=== PATIENT | female | born 1950 | race Hispanic/Latino ===

== ENCOUNTER 2017-04-13 09:29 | Inpatient (IN) | payer MEDICARE, BC ==
[2017-04-13 09:32] VITALS: BMI 26.5
[2017-04-13] MEDS ORDERED: Midazolam 2 MG/2 ML VIAL ONE (09:33)
--- NOTE | 2017-04-13 09:33 | C.PDOC ---
History Of Present Illness 66 yr old female with PMHx of COPD and left mastectomy, brought in via EMS presents to the ER for AMS. According to EMS, family reports symptoms started this morning and upon arrival of EMS, patient was still awake but was becoming anxious. On route to ED patient became obtunded and had to be intubated and is on CPAP. Patient was intubated without difficulty. EMS states they are unsure of the dose for succinylcholine. ROS is unable to be obtained due to clinical condition. Patient also history of prior trach placement which was removed 1 month ago. Time Seen by Provider: 04/13/17 09:32 Chief Complaint (Nursing): Respiratory Distress History Per: EMS History/Exam Limitations: clinical condition Onset/Duration Of Symptoms: Sudden Onset (Morning) Current Symptoms Are (Timing): Still Present Initiating Event: Upper Respiratory Illness Past Medical History Reviewed: Historical Data, Nursing Documentation, Vital Signs Vital Signs: Last Vital Signs Temp 97.8 F 04/13/17 10:23 Pulse 75 04/13/17 12:28 Resp 20 04/13/17 12:28 BP 120/67 04/13/17 12:28 Pulse Ox 100 04/13/17 12:28 - Medical History PMH: Anemia, Anxiety, Arthritis, Asthma, Bronchitis, Cardia Arrhythmia, CHF, COPD, Fractures, Gall Bladder Disease, HTN, Hyperthyroidism (on methimazole), Hypothyroidism, Malignancy (breast CA), Osteoporosis, Pneumonia - [facility] Procedures BYPASS TRACHEA TO CUTANEOUS WITH TRACH DEV, OPEN APPROACH (10/04/16) CHANGE TRACHEOSTOMY DEVICE IN TRACHEA, EXTERNAL APPROACH (01/25/17) DRAINAGE OF BUCCAL MUCOSA, EXTERNAL APPROACH, DIAGNOSTIC (10/04/16) DRAINAGE OF BUCCAL MUCOSA, OPEN APPROACH, DIAGNOSTIC (10/04/16) DRAINAGE OF BUCCAL MUCOSA, PERCUTANEOUS APPROACH, DIAGNOSTIC (10/04/16) DRAINAGE OF RIGHT LOWER LOBE BRONCHUS, ENDO, DIAGN (10/04/16) DRAINAGE OF RIGHT MIDDLE LOBE BRONCHUS, ENDO, DIAGN (10/04/16) INJECT/INFUSE NEC (04/30/14) INSERTION OF ENDOTRACHEAL AIRWAY INTO TRACHEA, VIA OPENING (10/04/16) INSERTION OF FEEDING DEVICE INTO STOMACH, PERC APPROACH (10/04/16) INSERTION OF INFUSION DEV INTO SUP VENA CAVA, PERC APPROACH (10/04/16) INSPECTION OF TRACHEOBRONCHIAL TREE, ENDO (10/04/16) INTRODUCE OF OTH THERAP SUBST INTO RESP TRACT, VIA OPENING (09/06/15) MEASURE OF CARDIAC SAMPL & PRESSURE, L HEART, PERC APPROACH (10/26/15) NEBULIZER THERAPY (05/31/14) NON-INVASIVE MECHANICAL VENTILATION (12/25/13) OCCUPATIONAL THERAPY (05/31/14) PHYSICAL THERAPY NEC (05/31/14) PLAIN RADIOGRAPHY OF LEFT HEART USING OTHER CONTRAST (10/26/15) PLAIN RADIOGRAPHY OF SINGLE COR ART USING OTH CONTRAST (10/26/15) REMOVAL OF INFUSION DEVICE FROM UPPER VEIN, WILLOW MACHINE OPERATOR APPROACH (01/25/17) RESPIRATORY VENTILATION, 24-96 CONSECUTIVE HOURS (01/25/17) SOFT TISSUE INCISION NEC (04/07/13) THERAPEUTIC EXERCISE TREATMENT OF MUSCULOSK WHOLE (09/06/15) TRANSFUSE NONAUT RED BLOOD CELLS IN CENTRAL VEIN, PERC (10/04/16) Family History: States: No Known Family Hx - Social History Hx Alcohol Use: No Hx Substance Use: No Review Of Systems Review Of Systems: ROS cannot be obtained secondary to pt's inabilty to answer questions. Physical Exam - Physical Exam Appears: Non-toxic, Other ((+) Sedated. ) Skin: Warm, Dry, No Rash Head: Atraumatic, Normacephalic Chest: Other (Left mastectomy scar.) Cardiovascular: Rhythm Regular, No Murmur Respiratory: Normal Breath Sounds (On vents ), No Wheezing Pulses: Left Radial: Normal, Right Radial: Normal, Left Dorsalis Pedis: Normal, Right Dorsalis Pedis: Normal Neurological/Psych: Other (Patient is intubated. ) ED Course And Treatment - Laboratory Results Result Diagrams: 04/13/17 10:28 04/13/17 11:17 ECG: Interpreted By Me, Viewed By Nm ECG Rhythm: Sinus Rhythm ECG Interpretation: Abnormal Interpretation Of ECG: Nonspecific T wave abnormality Rate From EC (BPM) - Radiology CXR: Interpreted by Me CXR Interpretation: Yes: Other (ETT ABOVE LUKAS) Progress - Re-Evaluation Re-evaluation Note: 04/13/17 10:15 89/43, HR 75. STABLE ON VENT. WILL BOLUS. 04/13/17 10:30 FAMILY @ BEDSIDE. DENIES RECENT ILLNESS. RECUR COPD UPON PT AWAKENING THIS MORNING. COMPLIANT W MEDS. PT IS NOT O2 DEPENDENT. PENDING LABS, ABG 04/13/17 11:41 D/W DR FORRESTER ACCEPTS FOR ICU. D/W DR ASHRAF MED BUNCH BREAKER WILL ADMIT - Data Reviewed Data Reviewed: Lab, Diagnostic imaging, EKG, Old records - Critical Care Citical Care: Excluding Proc Time Critical Care Time: 120 minutes - Continuity of Care Discussed patient case with:: On-call PMD-pt unassigned Discussed pt. case with library sales consultant/specialty: Pulmonary/Crit. Care Medical Decision Making Medical Decision Making: PLAN: * CXR * EKG * ABG * Troponin * CBC * CMP * BNP * Urinalysis * Solumedrol IVP * Sodium Chloride IV NOTE: * Patient was given Versed and Ketamine in field MANAGER OF DRILLING. 0927: Patient arrived to ER intubated. Disposition Counseled Patient/Family Regarding: Studies Performed, Diagnosis - Disposition Disposition: HOSPITALIZED Disposition Time: 11:46 Condition: STABLE - POA Present On Arrival: None - Clinical Impression Clinical Impression: COPD with exacerbation, Respiratory failure - Scribe Statement The provider has reviewed the documentation as recorded by the Barbaraiblaney Jimenez Provider Attestation: All medical record entries made by the Scribe were at my direction and personally dictated by me. I have reviewed the chart and agree that the record accurately reflects my personal performance of the history, physical exam, medical decision making, and the department course for this patient. I have also personally directed, reviewed, and agree with the discharge instructions and disposition. Decision To Admit - Pt Status Changed To: Hospital Disposition Of: Inpatient - Admit Certification Admit to Inpatient:: After my assessment, the patient will require hospitalization for at least two midnights. This is because of the severity of symptoms shown, intensity of services needed, and/or the medical risk in this patient being treated as an outpatient. - InPatient: Physician Admission Certification: I certify that this patient requires 2 or more midnights of care for the following reason:: SEE NOTE - . Bed Request Type: ICU Admitting Physician: Dillon Ashraf Patient Diagnosis: COPD with exacerbation, Respiratory failure
[2017-04-13] MEDS ORDERED: Midazolam 50 mg/10 ml 100 MG in Sodium Chloride 0.9% 80 ML IV SCH (09:45)
[2017-04-13] MEDS ORDERED: MethylPREDNISolone 40 mg Vial ONE (09:55)
[2017-04-13] MEDS ORDERED: Sodium Chloride 0.9% 500 ML IV ONE (10:16)
[2017-04-13 10:34] LABS: BASO % 0.3 % (0.0-2.0); EOS # 0.1 K/uL (0.0-0.7); EOS % 0.4 % (0.0-4.0); HEMATOCRIT 40.8 % (34.0-47.0); LYMPH # 2.2 K/uL (1.0-4.3); LYMPH % 15.7 % (20.0-40.0); MEAN CELL VOLUME 90.7 fL (81.0-99.0); MEAN CORPUSCULAR HEMOGLOBIN 28.4 pg (27.0-31.0); MEAN CORPUSCULAR HGB CONC 31.3 g/dL (33.0-37.0); MEAN PLATELET VOLUME 7.4 fL (7.2-11.7); MONO # 0.6 K/uL (0.0-0.8); MONO % 4.4 % (0.0-10.0); NRBC % 0.2 % (0.0-2.0); RED CELL DISTRIBUTION WIDTH 18.1 % (11.5-14.5); WHITE BLOOD COUNT 13.8 K/uL (4.8-10.8)
[2017-04-13 11:00] LABS: ABG ALLEN TEST POS; ABG MECHANICAL RATE 16; ARTERIAL BLOOD GAS MODE PRVC; ATERIAL BLOOD GAS PEEP 5; DRAW SITE LRA
[2017-04-13] MEDS ORDERED: Midazolam 2 MG/2 ML VIAL IV STA (11:26)
--- NOTE | 2017-04-13 11:34 | RAD ---
HISTORY: tube placement COMPARISON: No prior. FINDINGS: LUNGS: Endotracheal to extending into the trachea, somewhat low lying approximately 1.2 centimeters from the alexander. Additional tubing projects over the left lower reji thorax and right lung apex. Confluent dense consolidative changes in the right infrahilar region extending to the medial right lower lung zone. Additional confluent consolidative changes at the left lung base. Question trace bilateral pleural effusions. Diffuse increased interstitial markings. Biapical pleural thickening with upper lobe granulomatous changes. PLEURA: As above. CARDIOVASCULAR: Calcification at the aortic knob. OSSEOUS STRUCTURES: Degenerative changes in the spine and shoulders. Foreshortening of the distal bilateral clavicles. Postsurgical changes in the left proximal humerus. Postsurgical changes in the spine. VISUALIZED UPPER ABDOMEN: Normal. OTHER FINDINGS: Surgical clips in the right axilla. IMPRESSION: Endotracheal to extending into the trachea, somewhat low lying approximately 1.2 centimeters from the alexander. Additional tubing projects over the left lower reji thorax and right lung apex. Confluent dense consolidative changes in the right infrahilar region extending to the medial right lower lung zone. Additional confluent consolidative changes at the left lung base. Question trace bilateral pleural effusions. Diffuse increased interstitial markings. Biapical pleural thickening with upper lobe granulomatous changes.
[2017-04-13 11:36] LABS: CHLORIDE 108 mmol/L (98-107); SODIUM 143 mmol/L (132-148)
[2017-04-13 11:38] LABS: BILIRUBIN,TOTAL 0.4 mg/dL (0.2-1.3); CARBON DIOXIDE 23 mmol/L (22-30); GFR AFRICAN-AMERICAN > 60
[2017-04-13 11:39] LABS: ALKALINE PHOSPHATASE 82 U/L (38-126); ALT/SGPT 53 U/L (9-52); AST/SGOT 68 U/L (14-36); BLOOD UREA NITROGEN 21 mg/dL (7-17); CALCIUM 7.4 mg/dl (8.6-10.4); GLUCOSE,RANDOM 181 mg/dL (65-105); TOTAL PROTEIN 5.5 g/dL (6.3-8.3)
[2017-04-13 11:45] LABS: POTASSIUM 4.4 mmol/L (3.6-5.2)
[2017-04-13 12:27] LABS: RBC URINE 2 /hpf (0-3); URINE BACTERIA RARE (<OCC); URINE BILIRUBIN NEGATIVE (NEGATIVE); URINE BLOOD 1+ (NEGATIVE); URINE COLOR Yellow (YELLOW); URINE GLUCOSE (UA) 2+ mg/dL (Normal); URINE HYALINE CAST 0-2 /lpf (0-2); URINE KETONE NEGATIVE (NEGATIVE); URINE LEUKOCYTE ESTERASE TRACE Leu/uL (Negative); URINE PROTEIN 1+ mg/dL (NEGATIVE); URINE UROBILINOGEN NORMAL mg/dL (0.2-1.0); WBC URINE 8 /hpf (0-5)
[2017-04-13] MEDS ORDERED: guaiFENesin 100 mg/5 ml Syrup UD PO PRN (13:42)
[2017-04-13] MEDS ORDERED: Sodium Chloride 0.9% 1,000 ML IV SCH (13:45)
[2017-04-13] MEDS: Albuterol-Ipratrop 3 mg / 0.5 (3 ml) UD INH SCH ×2 (13:53→19:24)
--- NOTE | 2017-04-13 13:54 | CP.PCM.CON ---
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 p/w recurrent acute exacerbation of COPD (AECOPD) with acute respiratory failure. Intubated in ED (04/13). Review of Systems - Review of Systems Systems not reviewed;Unavailable: Intubated Past Patient History - Infectious Disease Hx of Infectious Diseases: None - Tetanus Immunizations Tetanus Immunization: Unknown - Past Medical History & Family History Past Medical History?: Yes - Past Social History Smoking Status: Former Smoker - CARDIAC Hx Cardia Arrhythmia: Yes Hx Congestive Heart Failure: Yes Hx Hypertension: Yes - PULMONARY Hx Asthma: Yes Hx Bronchitis: Yes Hx Chronic Obstructive Pulmonary Disease (COPD): Yes Hx Pneumonia: Yes - NEUROLOGICAL Hx Neurological Disorder: Yes Other/Comment: Peripheral neuropathy right lower extremity. 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 - RENAL Hx Chronic Kidney Disease: No - ENDOCRINE/METABOLIC Hx Hyperthyroidism: Yes (on methimazole) Hx Hypothyroidism: Yes - HEMATOLOGICAL/ONCOLOGICAL Hx Anemia: Yes - INTEGUMENTARY Hx Dermatological Problems: No - MUSCULOSKELETAL/RHEUMATOLOGICAL Hx Arthritis: Yes Hx Fractures: Yes Hx Osteoporosis: Yes - GASTROINTESTINAL Hx Gall Bladder Disease: Yes - GENITOURINARY/GYNECOLOGICAL Hx Genitourinary Disorders: No - PSYCHIATRIC Hx Anxiety: Yes Hx Substance Use: No - SURGICAL HISTORY Hx Surgeries: Yes Hx Mastectomy: Yes (right in 1998; left in 2008) Hx Orthopedic Surgery: Yes (2003 rigtht shoulder prosthesis, removal of hardware 2013) Hx Tubal Ligation: Yes Other/Comment: shoulder and humerous replacement with joint space infection and eventual removal of hardware in right shoulder and chronic lymphedema of RUE, groin cyst removal, cervical spinal fusion 2007, lumbar spinal fusion 2007. - ANESTHESIA Hx Anesthesia: Yes Hx Anesthesia Reactions: No Hx Malignant Hyperthermia: No Meds Allergies/Adverse Reactions: Allergies Allergy/AdvReac Type Severity Reaction Status Date / Time paper tape Allergy RASH Uncoded 03/11/17 18:30 - Medications Medications: Current Medications Albuterol/Ipratropium (Duoneb 3 Mg/0.5 Mg (3 Ml) Ud) 3 ml INH RQ6 NORMA Guaifenesin (Robitussin) 100 mg PO Q4H PRN PRN Reason: Cough Midazolam HCl 100 mg/ Sodium (Chloride) 100 mls @ 1.36 mls/hr IV .Q24H NORMA; 0.02 MG/KG/HR PRN Reason: Protocol Last Admin: 04/13/17 11:15 Dose: 1.36 mls/hr Cefepime HCl 1 gm/ Dextrose 50 mls @ 100 mls/hr IVPB Q8H NORMA Azithromycin 500 mg/ Sodium (Chloride) 250 mls @ 250 mls/hr IVPB Q24H NORMA Sodium Chloride (Sodium Chloride 0.9%) 1,000 mls @ 75 mls/hr IV .[id number] [facility] Stop: 04/13/17 23:46 Methylprednisolone (Solu-Medrol) 40 mg IV Q12 NORMA Physical Exam - Head Exam Head Exam: ATRAUMATIC, NORMAL INSPECTION, NORMOCEPHALIC - Eye Exam Eye Exam: EOMI, Normal appearance, PERRL - ENT Exam ENT Exam: Mucous Membranes Moist, Normal Exam - Neck Exam Neck exam: Positive for: Normal Inspection - Respiratory Exam Respiratory Exam: Decreased Breath Sounds (at bases), Clear to Auscultation Bilateral, NORMAL BREATHING PATTERN - Cardiovascular Exam Cardiovascular Exam: REGULAR RHYTHM - GI/Abdominal Exam GI & Abdominal Exam: Normal Bowel Sounds, Soft. absent: Tenderness - Neurological Exam Neurological exam: Alert Results - Vital Signs Recent Vital Signs: Last Vital Signs Temp 97.8 F 04/13/17 10:23 Pulse 75 04/13/17 12:28 Resp 20 04/13/17 12:28 BP 120/67 04/13/17 12:28 Pulse Ox 100 04/13/17 12:28 - Labs Result Diagrams: 04/13/17 10:28 04/13/17 11:17 Labs: Laboratory Results - last 24 hr 04/13/17 12:15 Urine Color Yellow Urine Clarity Clear Urine pH 6.0 Ur Specific [place] 1.013 Urine Protein 1+ H Urine Glucose (UA) 2+ H Urine Ketones Negative Urine Blood 1+ H Urine Nitrate Negative Urine Bilirubin Negative Urine Urobilinogen Normal Ur Leukocyte Esterase Trace Urine WBC (Auto) 8 H Urine RBC (Auto) 2 Urine Bacteria Rare Hyaline Casts 0-2 Assessment & Plan (1) Respiratory failure Assessment and Plan: 66yo PMHx chroic respiratory failure requiring trach and PEG (11/25 - 03/06/17) , systolic and diastolic CHF, COPD, bilateral metastatic breast CA to shoulder s /p chemo/rad 8 years ago (s/p humerus resection) with chronic lymphedema RUE, HTN, hyperthyroidism, tachycardia/SVT, Right cephalic vein thrombosis, anxiety. p/w recurrent acute exacerbation of COPD (AECOPD) with acute respiratory failure. Intubated in ED (04/13). Neuro: Alert and following commands. Versed when necessary for severe agitation. Pulm: Acute respiratory failure secondary to acute exacerbation of COPD and concomitant healthcare associated pneumonia. IV steroids, DuoNeb nebs, IV antibiotics, mucolytic. CV: Hemodynamically stable. Hypertension, we'll restart meds once pressure starts to rise. Hem: Anemia of chronic disease Renal: No acute issues, urine output within normal limits, will monitor. Endo: Hyperparathyroidism GI: Nothing by mouth, tube feedings, Pulmocare. ID: Severe sepsis secondary to healthcare associated pneumonia, continue cefepime and azithromycin. DVT proph - Lovenox GI proph - Protonix [place] for strict I/O's during acute illness Code status - full code Critical Care Time spent 35 minutes Multi-disciplinary rounds were performed with house staff, nursing, speech therapy, respiratory therapy, pharmacy and nutrition with integrated input from the primary team/attending and other consulting services. The documented time is cumulative and includes review of patient data/exams/labs/chart review and examination of the patient on rounds and throughout the day; time is exclusive of any procedures or teaching time. Status: Acute
[2017-04-13] MEDS: Azithromycin 500 MG in Sodium Chloride 0.9% 250 ML IVPB SCH (14:21)
[2017-04-13] MEDS: Enoxaparin 40 mg Syringe SC SCH (14:29)
[2017-04-13] MEDS: methIMAzole 5 MG TAB PO SCH (14:31)
[2017-04-13] MEDS ORDERED: Midazolam 2 MG/2 ML VIAL IVP PRN (15:18)
[2017-04-13] MEDS: Potassium Chloride 20 mEq ER Tab PO SCH ×2 (18:22→18:23)
[2017-04-13] MEDS ORDERED: MethylPREDNISolone 1 gm Vial IV SCH (22:00)
--- NOTE | 2017-04-13 22:00 | CP.PCM.HP ---
History of Present Illness - History of Present Illness History of Present Illness: 66 Y/O HF WITH COPD, HTN AND SHE STARTED GETTING SHORT OF BREATH COUGH WHEEZING AND S=CHEST PAIN AND CHEST CONGESTION AND WHEEZING, HER FAMILY CALLED 911 AND SHE WAS STARTED ON NEBULIZER OXYGEN AND SHE GOT INTUBATED BY THE EMS AND NOW SHE IS IN MICU Present on Admission - Present on Admission Any Indicators Present on Admission: No History of DVT/PE: No History of Uncontrolled Diabetes: No Urinary Catheter: No Decubitus Ulcer Present: No Review of Systems - Review of Systems Systems not reviewed;Unavailable: Unstable Vital Signs - Constitutional Constitutional: Chills, Weakness - EENT Eyes: Pain Nose/Mouth/Throat: Nasal Congestion - Cardiovascular Cardiovascular: Dyspnea - Respiratory Respiratory: Cough, Dyspnea, Wheezing, Pain on Inspiration, Chest Congestion, Excessive Mucous Production, Change in Mucous Color - Gastrointestinal Gastrointestinal: Belching - Genitourinary Genitourinary: Other - Integumentary Integumentary: Dry Skin Past Patient History - Infectious Disease Hx of Infectious Diseases: None - Tetanus Immunizations Tetanus Immunization: Unknown - Past Medical History & Family History Past Medical History?: Yes - Past Social History Smoking Status: Former Smoker - CARDIAC Hx Cardia Arrhythmia: Yes Hx Congestive Heart Failure: Yes Hx Hypertension: Yes - PULMONARY Hx Asthma: Yes Hx Bronchitis: Yes Hx Chronic Obstructive Pulmonary Disease (COPD): Yes Hx Pneumonia: Yes - NEUROLOGICAL Hx Neurological Disorder: Yes Other/Comment: Peripheral neuropathy right lower extremity. 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 - RENAL Hx Chronic Kidney Disease: No - ENDOCRINE/METABOLIC Hx Hyperthyroidism: Yes (on methimazole) Hx Hypothyroidism: Yes - HEMATOLOGICAL/ONCOLOGICAL Hx Anemia: Yes - INTEGUMENTARY Hx Dermatological Problems: No - MUSCULOSKELETAL/RHEUMATOLOGICAL Hx Arthritis: Yes Hx Fractures: Yes Hx Osteoporosis: Yes - GASTROINTESTINAL Hx Gall Bladder Disease: Yes - GENITOURINARY/GYNECOLOGICAL Hx Genitourinary Disorders: No - PSYCHIATRIC Hx Anxiety: Yes Hx Substance Use: No - SURGICAL HISTORY Hx Surgeries: Yes Hx Mastectomy: Yes (right in 1998; left in 2008) Hx Orthopedic Surgery: Yes (2003 rigtht shoulder prosthesis, removal of hardware 2013) Hx Tubal Ligation: Yes Other/Comment: shoulder and humerous replacement with joint space infection and eventual removal of hardware in right shoulder and chronic lymphedema of RUE, groin cyst removal, cervical spinal fusion 2007, lumbar spinal fusion 2007. - ANESTHESIA Hx Anesthesia: Yes Hx Anesthesia Reactions: No Hx Malignant Hyperthermia: No Meds Allergies/Adverse Reactions: Allergies Allergy/AdvReac Type Severity Reaction Status Date / Time paper tape Allergy RASH Uncoded 03/11/17 18:30 Physical Exam - Constitutional Appears: In Acute Distress - Head Exam Head Exam: ATRAUMATIC, NORMAL INSPECTION, NORMOCEPHALIC (ORALLY INTUBATED) - Eye Exam Eye Exam: Normal appearance - ENT Exam ENT Exam: Mucous Membranes Moist, Normal Oropharynx - Respiratory Exam Respiratory Exam: Prolonged Expiratory Phase, Wheezes, Respiratory Distress - Cardiovascular Exam Cardiovascular Exam: Tachycardia, Clicks, REGULAR RHYTHM, +S1, +S2 - GI/Abdominal Exam GI & Abdominal Exam: Normal Bowel Sounds, Soft - Rectal Exam Rectal Exam: NORMAL INSPECTION - Exam Exam: NORMAL INSPECTION - Extremities Exam Extremities exam: Positive for: normal inspection - Neurological Exam Neurological exam: Abnormal Gait, Altered Results - Vital Signs Recent Vital Signs: Last Vital Signs Temp 97.4 F L 04/13/17 21:25 Pulse 85 04/13/17 21:00 Resp 20 04/13/17 21:00 BP 135/63 04/13/17 20:55 Pulse Ox 98 04/13/17 21:00 - Labs Result Diagrams: 04/13/17 10:28 04/13/17 11:17 Labs: Laboratory Results - last 24 hr 04/13/17 12:15 Urine Color Yellow Urine Clarity Clear Urine pH 6.0 Ur Specific [place] 1.013 Urine Protein 1+ H Urine Glucose (UA) 2+ H Urine Ketones Negative Urine Blood 1+ H Urine Nitrate Negative Urine Bilirubin Negative Urine Urobilinogen Normal Ur Leukocyte Esterase Trace Urine WBC (Auto) 8 H Urine RBC (Auto) 2 Urine Bacteria Rare Hyaline Casts 0-2 Assessment & Plan (1) Acute respiratory failure with hypercapnia Assessment and Plan: ON MV Status: Acute (2) Acute tracheobronchitis Status: Acute (3) Hypothyroidism Status: Chronic (4) HTN (hypertension) Status: Chronic Priority: Medium
[2017-04-13] MEDS: MethylPREDNISolone 40 mg Vial IV SCH (22:02)
[2017-04-14] MEDS: Albuterol-Ipratrop 3 mg / 0.5 (3 ml) UD INH SCH ×4 (01:09→19:03)
[2017-04-14] MEDS ORDERED: Sodium Chloride 0.9% 1,000 ML IV SCH (01:30)
[2017-04-14] MEDS: Pantoprazole 40 mg Susp UD PO SCH (05:13)
[2017-04-14 05:56] LABS: ABG ALLEN TEST POS; ABG MECHANICAL RATE 20; ARTERIAL BLOOD GAS MODE PRVC; ATERIAL BLOOD GAS PEEP 5; CARBOXYHEMOGLOBIN 1.9 % (0.5-1.5); DRAW SITE LR; METHEMOGLOBIN 1.1 % (0.0-3.0)
[2017-04-14 06:22] LABS: EOS % 0.1 % (0.0-4.0); HEMATOCRIT 35.5 % (34.0-47.0); LYMPH # 0.5 K/uL (1.0-4.3); LYMPH % 5.5 % (20.0-40.0); MEAN CELL VOLUME 88.4 fL (81.0-99.0); MEAN CORPUSCULAR HEMOGLOBIN 28.2 pg (27.0-31.0); MEAN CORPUSCULAR HGB CONC 31.9 g/dL (33.0-37.0); MEAN PLATELET VOLUME 7.5 fL (7.2-11.7); MONO # 0.2 K/uL (0.0-0.8); MONO % 2.6 % (0.0-10.0); NRBC % 0.2 % (0.0-2.0); PLATELET COUNT 351 K/uL (130-400); RED CELL DISTRIBUTION WIDTH 17.3 % (11.5-14.5); WHITE BLOOD COUNT 9.2 K/uL (4.8-10.8)
[2017-04-14 07:08] LABS: ALKALINE PHOSPHATASE 74 U/L (38-126); ALT/SGPT 41 U/L (9-52); AST/SGOT 26 U/L (14-36); BILIRUBIN,TOTAL 0.4 mg/dL (0.2-1.3); BLOOD UREA NITROGEN 25 mg/dL (7-17); CALCIUM 7.5 mg/dl (8.6-10.4); CARBON DIOXIDE 24 mmol/L (22-30); CHLORIDE 107 mmol/L (98-107); GFR AFRICAN-AMERICAN > 60; GLUCOSE,RANDOM 99 mg/dL (65-105); MAGNESIUM 1.7 mg/dL (1.6-2.3); PHOSPHOROUS 3.8 mg/dL (2.5-4.5); POTASSIUM 4.7 mmol/L (3.6-5.2); SODIUM 141 mmol/L (132-148); TOTAL PROTEIN 5.1 g/dL (6.3-8.3)
[2017-04-14 07:21] LABS: ALB/GLOB RATIO 1.1 (1.0-2.1)
[2017-04-14 08:26] LABS: NEUTROPHIL 93 % (50-75); REACTIVE LYMPHOCYTES 1 % (0-0); TOTAL CELLS COUNTED 100
--- NOTE | 2017-04-14 08:55 | RAD ---
Chest x-ray single frontal view History: Ventilator. Comparison: 04/13/2017 Findings: Endotracheal tube extending into the mid thoracic trachea. NG tube extending into the stomach. Hyperinflation suggestive for COPD and or emphysematous changes. Biapical pleural thickening with upper lobe granulomatous changes. Patchy increased markings in the right hilar and infrahilar region as well as at the bilateral lung bases. Scattered nodularity throughout the lung bases. Scoliotic curvature of the spine. Cardiomegaly. Calcification at the aortic knob. Deformity and absence of the proximal right humerus with a patchy sclerotic appearance of the distal clavicle, acromion, glenoid, coracoid, and remnant humerus. Surgical clips in the left axilla. Impression: No significant interval change.
[2017-04-14] MEDS: MethylPREDNISolone 40 mg Vial IV SCH ×2 (10:35→21:30)
[2017-04-14] MEDS: methIMAzole 5 MG TAB PO SCH (10:35)
[2017-04-14] MEDS: Enoxaparin 40 mg Syringe SC SCH (10:37)
--- NOTE | 2017-04-14 11:23 | CP.CCUPN ---
<Felisa Zuluaga - Last Filed: 04/14/17 12:51> CCU Subjective - Physician Review Subjective (Free Text): Patient was seen and examined at bedside in the morning and in no acute distress. Patient is intubed, therefore review of systems was limited. Patient was able to nod "yes" and "no" to questions. Patient denies having chest pain, abdominal pain, nausea, vomiting, diarrhea, headaches, and leg pain. 04/14/17 11:20 CCU Objective - Vital Signs / Intake & Output Vital Signs (Last 4 hours): Vital Signs Temp Pulse Resp BP Pulse Ox 04/14/17 11:10 103 H 14 98 04/14/17 11:00 105 H 9 L 98 04/14/17 10:55 104 H 11 L 163/85 H 98 04/14/17 10:50 105 H 12 98 04/14/17 10:40 102 H 13 98 04/14/17 10:36 163/84 H 04/14/17 10:30 105 H 20 98 04/14/17 10:20 101 H 20 100 04/14/17 10:10 101 H 20 99 04/14/17 10:00 100 H 20 99 04/14/17 09:55 102 H 20 163/84 H 99 04/14/17 09:50 101 H 20 99 04/14/17 09:40 103 H 20 99 04/14/17 09:30 103 H 20 99 04/14/17 09:23 104 H 20 160/78 H 97 04/14/17 09:20 108 H 20 99 04/14/17 09:10 101 H 20 97 04/14/17 09:00 101 H 20 96 04/14/17 08:56 101 H 20 164/90 H 97 04/14/17 08:50 101 H 20 97 04/14/17 08:40 101 H 20 96 04/14/17 08:30 100 H 20 99 04/14/17 08:10 99 H 20 100 04/14/17 08:00 98.2 F 98 H 20 99 04/14/17 07:56 98 H 20 170/88 H 99 04/14/17 07:50 102 H 22 100 04/14/17 07:40 98 H 20 98 04/14/17 07:30 102 H 20 100 Intake and Output (Last 8hrs): Intake & Output 08/06/17 08/07/17 08/07/17 22:59 06:59 14:59 Intake Total 931.2 903.2 465.6 Output Total 1295 425 300 Balance -363.8 478.2 165.6 Weight 113 lb 8.609 oz 110 lb 3.698 oz Intake: Intake, IV Amount 871.2 623.2 305.6 Left Forearm 610 612 300 Left Proximal Port Wrist 250 Left Wrist 11.2 11.2 5.6 Tube Feeding 60 160 100 Other 120 60 Output: Urine 1295 425 300 Urethral (Jean Baptiste) 1295 425 300 Other: # Bowel Movements 1 - Physical Exam Head: Positive for: Atraumatic, Normocephalic Extroacular Muscles: Positive for: EOMI Mouth: Positive for: Moist Mucous Membranes Respiratory/Chest: Positive for: Clear to Auscultation. Negative for: Wheezes, Rales, Rhonchi Cardiovascular: Positive for: Regular Rate and Rhythm, Normal S1, S2 Abdomen: Positive for: Normal Bowel Sounds. Negative for: Tenderness Upper Extremity: Positive for: Edema. Negative for: Normal Inspection (RUE- chronic lymphedema ("for years")) Lower Extremity: Positive for: Normal Inspection, NORMAL PULSES. Negative for: Edema, Tenderness, Swelling Skin: Positive for: Warm, Dry, Normal Color Psychiatric: Positive for: Alert - Medications Active Medications: Active Medications Generic Name Dose Route Start Last Admin Trade Name Freq PRN Reason Stop Dose Admin Albuterol/Ipratropium 3 ml 04/13/17 14:00 04/14/17 07:58 Duoneb 3 Mg/0.5 Mg (3 Ml) Ud INH 3 ml RQ6 NORMA Administration Enoxaparin Sodium 40 mg 04/13/17 14:15 04/14/17 10:37 Lovenox SC 40 mg DAILY NORMA Administration Gabapentin 600 mg 04/13/17 18:00 04/14/17 10:35 Neurontin PO 600 mg TID NORMA Administration Guaifenesin 100 mg 04/13/17 13:42 Robitussin PO Q4H PRN Cough Cefepime HCl 1 gm/ Dextrose 50 mls @ 100 mls/hr 04/13/17 14:00 04/14/17 05:13 IVPB 100 mls/hr Q8H NORMA Administration Azithromycin 500 mg/ Sodium 250 mls @ 250 mls/hr 04/13/17 15:00 04/13/17 14: 21 Chloride IVPB 250 mls/hr Q24H NORMA Administration Methimazole 5 mg 04/13/17 14:15 04/14/17 10:35 Tapazole PO 5 mg DAILY NORMA Administration Methylprednisolone 40 mg 04/13/17 22:00 04/14/17 10:35 Solu-Medrol IV 40 mg Q12 NORMA Administration Metoprolol Tartrate 25 mg 04/14/17 10:00 04/14/17 10:36 Lopressor PO 25 mg BID NORMA Administration Pantoprazole Sodium 40 mg 04/14/17 06:00 04/14/17 05:13 Protonix Susp PO 40 mg 0600 NORMA Administration - Patient Studies Lab Studies: Lab Studies 04/14/17 04/14/17 04/14/17 Range/Units 06:16 06:15 05:25 WBC 9.2 (4.8-10.8) K/uL RBC 4.02 (3.80-5.20) Mil/uL Hgb 11.3 (11.0-16.0) g/dL Hct 35.5 (34.0-47.0) % MCV 88.4 D (81.0-99.0) fL MCH 28.2 (27.0-31.0) pg MCHC 31.9 L (33.0-37.0) g/dL RDW 17.3 H (11.5-14.5) % Plt Count 351 D (130-400) K/uL MPV 7.5 (7.2-11.7) fL Neut % (Auto) 91.8 H (50.0-75.0) % Lymph % (Auto) 5.5 L (20.0-40.0) % [place] % (Auto) 2.6 (0.0-10.0) % Eos % (Auto) 0.1 (0.0-4.0) % Baso % (Auto) 0.0 (0.0-2.0) % Neut # 8.4 H (1.8-7.0) K/uL Lymph # 0.5 L (1.0-4.3) K/uL [place] # 0.2 (0.0-0.8) K/uL Eos # 0.0 (0.0-0.7) K/uL Baso # 0.0 (0.0-0.2) K/uL Neutrophils % (Manual) 93 H (50-75) % Lymphocytes % (Manual) 4 L (20-40) % Reactive Lymphs % 1 H (0-0) % Monocytes % (Manual) 2 (0-10) % Platelet Estimate Normal (NORMAL) Anisocytosis (manual) Slight Puncture Site Lr pCO2 35 (35-45) mm/Hg pO2 171 H (80-100) mm/Hg HCO3 23.8 (21-28) mmol/L ABG pH 7.42 (7.35-7.45) ABG Total CO2 23.8 (22-28) mmol/L ABG O2 Saturation 100.0 H (95-98) % ABG Base Excess -1.4 (-2.0-3.0) mmol/L ABG Hemoglobin 11.5 L (11.7-17.4) g/dL ABG Carboxyhemoglobin 1.9 H (0.5-1.5) % POC ABG HHb (Measured) 0.0 (0.0-5.0) % ABG Methemoglobin 1.1 (0.0-3.0) % Markel Test Pos A-a O2 Difference 142.0 mm/Hg Respiratory Index 0.8 Hgb O2 Saturation 97.0 (95.0-98.0) % Vent Mode Prvc Mechanical Rate 20 FiO2 50.0 % Tidal Volume 500 PEEP 5 Sodium 141 (132-148) mmol/L Potassium 4.7 (3.6-5.2) mmol/L Chloride 107 (98-107) mmol/L Carbon Dioxide 24 (22-30) mmol/L Anion Gap 15 (10-20) BUN 25 H (7-17) mg/dL Creatinine 0.8 (0.7-1.2) MG/DL Est GFR ( Amer) > 60 Est GFR (Non-Af Amer) > 60 Random Glucose 99 (65-105) mg/dL Calcium 7.5 L (8.6-10.4) mg/dl Phosphorus 3.8 (2.5-4.5) mg/dL Magnesium 1.7 (1.6-2.3) mg/dL Total Bilirubin 0.4 (0.2-1.3) mg/dL AST 26 (14-36) U/L ALT 41 (9-52) U/L Alkaline Phosphatase 74 (38-126) U/L Total Protein 5.1 L (6.3-8.3) g/dL Albumin 2.7 L (3.5-5.0) g/dL Globulin 2.4 (2.2-3.9) gm/dL Albumin/Globulin Ratio 1.1 (1.0-2.1) Urine Color (YELLOW) Urine Clarity (Clear) Urine pH (5.0-8.0) Ur Specific [place] (1.003-1.030) Urine Protein (NEGATIVE) mg/dL Urine Glucose (UA) (Normal) mg/dL Urine Ketones (NEGATIVE) mg/dL Urine Blood (NEGATIVE) Urine Nitrate (NEGATIVE) Urine Bilirubin (NEGATIVE) Urine Urobilinogen (0.2-1.0) mg/dL Ur Leukocyte Esterase (Negative) Mary/uL Urine WBC (Auto) (0-5) /hpf Urine RBC (Auto) (0-3) /hpf Urine Bacteria (<OCC) Hyaline Casts (0-2) /lpf 04/13/17 Range/Units 12:15 WBC (4.8-10.8) K/uL RBC (3.80-5.20) Mil/uL Hgb (11.0-16.0) g/dL Hct (34.0-47.0) % MCV (81.0-99.0) fL MCH (27.0-31.0) pg MCHC (33.0-37.0) g/dL RDW (11.5-14.5) % Plt Count (130-400) K/uL MPV (7.2-11.7) fL Neut % (Auto) (50.0-75.0) % Lymph % (Auto) (20.0-40.0) % [place] % (Auto) (0.0-10.0) % Eos % (Auto) (0.0-4.0) % Baso % (Auto) (0.0-2.0) % Neut # (1.8-7.0) K/uL Lymph # (1.0-4.3) K/uL [place] # (0.0-0.8) K/uL Eos # (0.0-0.7) K/uL Baso # (0.0-0.2) K/uL Neutrophils % (Manual) (50-75) % Lymphocytes % (Manual) (20-40) % Reactive Lymphs % (0-0) % Monocytes % (Manual) (0-10) % Platelet Estimate (NORMAL) Anisocytosis (manual) Puncture Site pCO2 (35-45) mm/Hg pO2 (80-100) mm/Hg HCO3 (21-28) mmol/L ABG pH (7.35-7.45) ABG Total CO2 (22-28) mmol/L ABG O2 Saturation (95-98) % ABG Base Excess (-2.0-3.0) mmol/L ABG Hemoglobin (11.7-17.4) g/dL ABG Carboxyhemoglobin (0.5-1.5) % POC ABG HHb (Measured) (0.0-5.0) % ABG Methemoglobin (0.0-3.0) % Markel Test A-a O2 Difference mm/Hg Respiratory Index Hgb O2 Saturation (95.0-98.0) % Vent Mode Mechanical Rate FiO2 % Tidal Volume PEEP Sodium (132-148) mmol/L Potassium (3.6-5.2) mmol/L Chloride (98-107) mmol/L Carbon Dioxide (22-30) mmol/L Anion Gap (10-20) BUN (7-17) mg/dL Creatinine (0.7-1.2) MG/DL Est GFR ( Amer) Est GFR (Non-Af Amer) Random Glucose (65-105) mg/dL Calcium (8.6-10.4) mg/dl Phosphorus (2.5-4.5) mg/dL Magnesium (1.6-2.3) mg/dL Total Bilirubin (0.2-1.3) mg/dL AST (14-36) U/L ALT (9-52) U/L Alkaline Phosphatase (38-126) U/L Total Protein (6.3-8.3) g/dL Albumin (3.5-5.0) g/dL Globulin (2.2-3.9) gm/dL Albumin/Globulin Ratio (1.0-2.1) Urine Color Yellow (YELLOW) Urine Clarity Clear (Clear) Urine pH 6.0 (5.0-8.0) Ur Specific [place] 1.013 (1.003-1.030) Urine Protein 1+ H (NEGATIVE) mg/dL Urine Glucose (UA) 2+ H (Normal) mg/dL Urine Ketones Negative (NEGATIVE) mg/dL Urine Blood 1+ H (NEGATIVE) Urine Nitrate Negative (NEGATIVE) Urine Bilirubin Negative (NEGATIVE) Urine Urobilinogen Normal (0.2-1.0) mg/dL Ur Leukocyte Esterase Trace (Negative) Mary/uL Urine WBC (Auto) 8 H (0-5) /hpf Urine RBC (Auto) 2 (0-3) /hpf Urine Bacteria Rare (<OCC) Hyaline Casts 0-2 (0-2) /lpf Laboratory Results - last 24 hr 04/13/17 04/14/17 04/14/17 12:15 05:25 06:15 WBC RBC Hgb Hct MCV MCH MCHC RDW Plt Count MPV Neut % (Auto) Lymph % (Auto) [place] % (Auto) Eos % (Auto) Baso % (Auto) Neut # Lymph # [place] # Eos # Baso # Neutrophils % (Manual) Lymphocytes % (Manual) Reactive Lymphs % Monocytes % (Manual) Platelet Estimate Anisocytosis (manual) Puncture Site Lr pCO2 35 pO2 171 H HCO3 23.8 ABG pH 7.42 ABG Total CO2 23.8 ABG O2 Saturation 100.0 H ABG Base Excess -1.4 ABG Hemoglobin 11.5 L ABG Carboxyhemoglobin 1.9 H POC ABG HHb (Measured) 0.0 ABG Methemoglobin 1.1 Markel Test Pos A-a O2 Difference 142.0 Respiratory Index 0.8 Hgb O2 Saturation 97.0 Vent Mode Prvc Mechanical Rate 20 FiO2 50.0 Tidal Volume 500 PEEP 5 Sodium 141 Potassium 4.7 Chloride 107 Carbon Dioxide 24 Anion Gap 15 BUN 25 H Creatinine 0.8 Est GFR ( Amer) > 60 Est GFR (Non-Af Amer) > 60 Random Glucose 99 Calcium 7.5 L Phosphorus 3.8 Magnesium 1.7 Total Bilirubin 0.4 AST 26 ALT 41 Alkaline Phosphatase 74 Total Protein 5.1 L Albumin 2.7 L Globulin 2.4 Albumin/Globulin Ratio 1.1 Urine Color Yellow Urine Clarity Clear Urine pH 6.0 Ur Specific [place] 1.013 Urine Protein 1+ H Urine Glucose (UA) 2+ H Urine Ketones Negative Urine Blood 1+ H Urine Nitrate Negative Urine Bilirubin Negative Urine Urobilinogen Normal Ur Leukocyte Esterase Trace Urine WBC (Auto) 8 H Urine RBC (Auto) 2 Urine Bacteria Rare Hyaline Casts 0-2 04/14/17 06:16 WBC 9.2 RBC 4.02 Hgb 11.3 Hct 35.5 MCV 88.4 D MCH 28.2 MCHC 31.9 L RDW 17.3 H Plt Count 351 D MPV 7.5 Neut % (Auto) 91.8 H Lymph % (Auto) 5.5 L [place] % (Auto) 2.6 Eos % (Auto) 0.1 Baso % (Auto) 0.0 Neut # 8.4 H Lymph # 0.5 L [place] # 0.2 Eos # 0.0 Baso # 0.0 Neutrophils % (Manual) 93 H Lymphocytes % (Manual) 4 L Reactive Lymphs % 1 H Monocytes % (Manual) 2 Platelet Estimate Normal Anisocytosis (manual) Slight Puncture Site pCO2 pO2 HCO3 ABG pH ABG Total CO2 ABG O2 Saturation ABG Base Excess ABG Hemoglobin ABG Carboxyhemoglobin POC ABG HHb (Measured) ABG Methemoglobin Markel Test A-a O2 Difference Respiratory Index Hgb O2 Saturation Vent Mode Mechanical Rate FiO2 Tidal Volume PEEP Sodium Potassium Chloride Carbon Dioxide Anion Gap BUN Creatinine Est GFR ( Amer) Est GFR (Non-Af Amer) Random Glucose Calcium Phosphorus Magnesium Total Bilirubin AST ALT Alkaline Phosphatase Total Protein Albumin Globulin Albumin/Globulin Ratio Urine Color Urine Clarity Urine pH Ur Specific [place] Urine Protein Urine Glucose (UA) Urine Ketones Urine Blood Urine Nitrate Urine Bilirubin Urine Urobilinogen Ur Leukocyte Esterase Urine WBC (Auto) Urine RBC (Auto) Urine Bacteria Hyaline Casts Review of Systems - Review of Systems Systems not reviewed;Unavailable: Intubated - Cardiovascular Cardiovascular: absent: Chest Pain, Leg Edema - Respiratory Respiratory: Other (Intubated) - Gastrointestinal Gastrointestinal: absent: Abdominal Pain, Constipation, Diarrhea, Nausea, Vomiting - Integumentary Integumentary: Swelling (RUE- chronic lymphedema) - Neurological Neurological: absent: Dizziness Critical Care Progress Note - Vent Settings RESP RATE:: 12 FIO2:: 40 PEEP:: 5 Assessment/Plan - Assessment and Plan (Free Text) Assessment: Neuro: Alert and following commands. - Discontinued Versed Pulm: Acute respiratory failure secondary to acute exacerbation of COPD and concomitant healthcare associated pneumonia. - IV steroids, DuoNeb nebs, IV antibiotics, mucolytic. - CPAP trial today CV: Hemodynamically stable. Hypertension, we'll restart meds once pressure starts to rise. - Metoprolol 25mg PO BID Hem: Anemia of chronic disease Renal: No acute issues, urine output within normal limits, will monitor. Endo: - Hyperthyroidism: continue methimazole GI: Nothing by mouth, - Tube feedings, Pulmocare. ID: Severe sepsis secondary to healthcare associated pneumonia - Continue cefepime and azithromycin. Prophylaxis - DVT- Lovenox - GI- Protonix - Jean Baptiste for strict I/O's during acute illness Code status - full code <Connie Potts - Last Filed: 04/14/17 18:50> CCU Subjective - Physician Review Subjective (Free Text): The patient today tolerating the CPAP trial this morning. After Ts trial patient tolerated the pressure support, and extubated. But after the extubation patient was complaining of chest pain. EKG was done, no ischemic changes noted. Placed on BiPAP. Patient was given nebulizers. Patient was given Nitropaste. Patient doing well. We will maintain the CPAP, and will start the patient on feeding tomorrow CCU Objective - Vital Signs / Intake & Output Vital Signs (Last 4 hours): Vital Signs Temp Pulse Resp BP Pulse Ox 04/14/17 18:00 90 15 94 L 04/14/17 17:55 91 H 15 139/76 93 L 04/14/17 17:50 92 H 14 93 L 04/14/17 17:40 92 H 14 92 L 04/14/17 17:30 93 H 16 93 L 04/14/17 17:20 94 H 17 94 L 04/14/17 17:10 95 H 16 95 04/14/17 17:00 96 H 19 95 04/14/17 16:56 97 H 19 145/81 95 04/14/17 16:50 97 H 13 95 04/14/17 16:45 90 04/14/17 16:40 100 H 16 99 04/14/17 16:35 101 H 21 149/87 99 04/14/17 16:30 100 H 12 99 04/14/17 16:20 99 H 17 99 04/14/17 16:10 101 H 15 99 04/14/17 16:00 98.1 F 104 H 15 100 04/14/17 15:55 105 H 20 154/82 H 98 04/14/17 15:50 101 H 15 99 04/14/17 15:40 97 H 15 99 04/14/17 15:30 98 H 16 98 04/14/17 15:20 100 H 17 97 04/14/17 15:10 101 H 18 98 04/14/17 15:00 103 H 13 99 04/14/17 14:56 103 H 13 109/67 99 04/14/17 14:50 103 H 17 99 Intake and Output (Last 8hrs): Intake & Output 04/14/17 04/14/17 04/14/17 06:59 14:59 22:59 Intake Total 903.2 635.6 290 Output Total 425 380 120 Balance 478.2 255.6 170 Weight 113 lb 8.609 oz 110 lb 3.698 oz Intake: Intake, IV Amount 623.2 355.6 250 Left Forearm 612 300 Left Wrist 11.2 55.6 250 Tube Feeding 160 160 40 Other 120 120 Output: Urine 425 380 120 Urethral (Jean Baptiste) 425 380 120 Other: # Bowel Movements 1 - Medications Active Medications: Active Medications Generic Name Dose Route Start Last Admin Trade Name Freq PRN Reason Stop Dose Admin Albuterol/Ipratropium 3 ml 04/13/17 14:00 04/14/17 13:05 Duoneb 3 Mg/0.5 Mg (3 Ml) Ud INH 3 ml RQ6 NORMA Administration Anastrozole 1 mg 04/15/17 10:00 Arimidex 1 Mg Tab PO DAILY NORMA Enoxaparin Sodium 40 mg 04/13/17 14:15 04/14/17 10:37 Lovenox SC 40 mg DAILY NORMA Administration Gabapentin 600 mg 04/13/17 18:00 04/14/17 17:43 Neurontin PO Not Given TID NORMA Cefepime HCl 1 gm/ Dextrose 50 mls @ 100 mls/hr 04/13/17 14:00 04/14/17 13:35 IVPB 100 mls/hr Q8H NORMA Administration Azithromycin 500 mg/ Sodium 250 mls @ 250 mls/hr 04/13/17 15:00 04/14/17 14: 12 Chloride IVPB 250 mls/hr Q24H NORMA Administration Methimazole 5 mg 04/13/17 14:15 04/14/17 10:35 Tapazole PO 5 mg DAILY NORMA Administration Methylprednisolone 40 mg 04/13/17 22:00 04/14/17 10:35 Solu-Medrol IV 40 mg Q12 NORMA Administration Metoprolol Tartrate 25 mg 04/14/17 10:00 04/14/17 17:42 Lopressor PO Not Given BID NORMA Pantoprazole Sodium 40 mg 04/14/17 06:00 04/14/17 05:13 Protonix Susp PO 40 mg 0600 NORMA Administration - Patient Studies Lab Studies: Microbiology Studies 04/13/17 17:00 Blood Culture - Preliminary Blood NO GROWTH AFTER 24 HOURS 04/13/17 17:00 Blood Culture - Preliminary Blood NO GROWTH AFTER 24 HOURS Lab Studies 04/14/17 04/14/17 04/14/17 Range/Units 14:53 06:16 06:15 WBC 9.2 (4.8-10.8) K/uL RBC 4.02 (3.80-5.20) Mil/uL Hgb 11.3 (11.0-16.0) g/dL Hct 35.5 (34.0-47.0) % MCV 88.4 D (81.0-99.0) fL MCH 28.2 (27.0-31.0) pg MCHC 31.9 L (33.0-37.0) g/dL RDW 17.3 H (11.5-14.5) % Plt Count 351 D (130-400) K/uL MPV 7.5 (7.2-11.7) fL Neut % (Auto) 91.8 H (50.0-75.0) % Lymph % (Auto) 5.5 L (20.0-40.0) % [place] % (Auto) 2.6 (0.0-10.0) % Eos % (Auto) 0.1 (0.0-4.0) % Baso % (Auto) 0.0 (0.0-2.0) % Neut # 8.4 H (1.8-7.0) K/uL Lymph # 0.5 L (1.0-4.3) K/uL [place] # 0.2 (0.0-0.8) K/uL Eos # 0.0 (0.0-0.7) K/uL Baso # 0.0 (0.0-0.2) K/uL Neutrophils % (Manual) 93 H (50-75) % Lymphocytes % (Manual) 4 L (20-40) % Reactive Lymphs % 1 H (0-0) % Monocytes % (Manual) 2 (0-10) % Platelet Estimate Normal (NORMAL) Anisocytosis (manual) Slight Puncture Site Lr pCO2 38 (35-45) mm/Hg pO2 155 H (80-100) mm/Hg HCO3 23.1 (21-28) mmol/L ABG pH 7.38 (7.35-7.45) ABG Total CO2 23.7 (22-28) mmol/L ABG O2 Saturation 99.9 H (95-98) % ABG Base Excess -2.3 L (-2.0-3.0) mmol/L ABG Hemoglobin 11.3 L (11.7-17.4) g/dL ABG Carboxyhemoglobin 1.8 H (0.5-1.5) % POC ABG HHb (Measured) 0.1 (0.0-5.0) % ABG Methemoglobin 1.1 (0.0-3.0) % Markel Test Pos A-a O2 Difference 83.0 mm/Hg Respiratory Index 0.5 Hgb O2 Saturation 97.0 (95.0-98.0) % Vent Mode Mechanical Rate FiO2 40.0 % Tidal Volume PEEP Sodium 141 (132-148) mmol/L Potassium 4.7 (3.6-5.2) mmol/L Chloride 107 (98-107) mmol/L Carbon Dioxide 24 (22-30) mmol/L Anion Gap 15 (10-20) BUN 25 H (7-17) mg/dL Creatinine 0.8 (0.7-1.2) MG/DL Est GFR ( Amer) > 60 Est GFR (Non-Af Amer) > 60 Random Glucose 99 (65-105) mg/dL Calcium 7.5 L (8.6-10.4) mg/dl Phosphorus 3.8 (2.5-4.5) mg/dL Magnesium 1.7 (1.6-2.3) mg/dL Total Bilirubin 0.4 (0.2-1.3) mg/dL AST 26 (14-36) U/L ALT 41 (9-52) U/L Alkaline Phosphatase 74 (38-126) U/L Total Protein 5.1 L (6.3-8.3) g/dL Albumin 2.7 L (3.5-5.0) g/dL Globulin 2.4 (2.2-3.9) gm/dL Albumin/Globulin Ratio 1.1 (1.0-2.1) 04/14/17 Range/Units 05:25 WBC (4.8-10.8) K/uL RBC (3.80-5.20) Mil/uL Hgb (11.0-16.0) g/dL Hct (34.0-47.0) % MCV (81.0-99.0) fL MCH (27.0-31.0) pg MCHC (33.0-37.0) g/dL RDW (11.5-14.5) % Plt Count (130-400) K/uL MPV (7.2-11.7) fL Neut % (Auto) (50.0-75.0) % Lymph % (Auto) (20.0-40.0) % [place] % (Auto) (0.0-10.0) % Eos % (Auto) (0.0-4.0) % Baso % (Auto) (0.0-2.0) % Neut # (1.8-7.0) K/uL Lymph # (1.0-4.3) K/uL [place] # (0.0-0.8) K/uL Eos # (0.0-0.7) K/uL Baso # (0.0-0.2) K/uL Neutrophils % (Manual) (50-75) % Lymphocytes % (Manual) (20-40) % Reactive Lymphs % (0-0) % Monocytes % (Manual) (0-10) % Platelet Estimate (NORMAL) Anisocytosis (manual) Puncture Site Lr pCO2 35 (35-45) mm/Hg pO2 171 H (80-100) mm/Hg HCO3 23.8 (21-28) mmol/L ABG pH 7.42 (7.35-7.45) ABG Total CO2 23.8 (22-28) mmol/L ABG O2 Saturation 100.0 H (95-98) % ABG Base Excess -1.4 (-2.0-3.0) mmol/L ABG Hemoglobin 11.5 L (11.7-17.4) g/dL ABG Carboxyhemoglobin 1.9 H (0.5-1.5) % POC ABG HHb (Measured) 0.0 (0.0-5.0) % ABG Methemoglobin 1.1 (0.0-3.0) % Markel Test Pos A-a O2 Difference 142.0 mm/Hg Respiratory Index 0.8 Hgb O2 Saturation 97.0 (95.0-98.0) % Vent Mode Prvc Mechanical Rate 20 FiO2 50.0 % Tidal Volume 500 PEEP 5 Sodium (132-148) mmol/L Potassium (3.6-5.2) mmol/L Chloride (98-107) mmol/L Carbon Dioxide (22-30) mmol/L Anion Gap (10-20) BUN (7-17) mg/dL Creatinine (0.7-1.2) MG/DL Est GFR ( Amer) Est GFR (Non-Af Amer) Random Glucose (65-105) mg/dL Calcium (8.6-10.4) mg/dl Phosphorus (2.5-4.5) mg/dL Magnesium (1.6-2.3) mg/dL Total Bilirubin (0.2-1.3) mg/dL AST (14-36) U/L ALT (9-52) U/L Alkaline Phosphatase (38-126) U/L Total Protein (6.3-8.3) g/dL Albumin (3.5-5.0) g/dL Globulin (2.2-3.9) gm/dL Albumin/Globulin Ratio (1.0-2.1) Laboratory Results - last 24 hr 04/14/17 04/14/17 04/14/17 05:25 06:15 06:16 WBC 9.2 RBC 4.02 Hgb 11.3 Hct 35.5 MCV 88.4 D MCH 28.2 MCHC 31.9 L RDW 17.3 H Plt Count 351 D MPV 7.5 Neut % (Auto) 91.8 H Lymph % (Auto) 5.5 L [place] % (Auto) 2.6 Eos % (Auto) 0.1 Baso % (Auto) 0.0 Neut # 8.4 H Lymph # 0.5 L [place] # 0.2 Eos # 0.0 Baso # 0.0 Neutrophils % (Manual) 93 H Lymphocytes % (Manual) 4 L Reactive Lymphs % 1 H Monocytes % (Manual) 2 Platelet Estimate Normal Anisocytosis (manual) Slight Puncture Site Lr pCO2 35 pO2 171 H HCO3 23.8 ABG pH 7.42 ABG Total CO2 23.8 ABG O2 Saturation 100.0 H ABG Base Excess -1.4 ABG Hemoglobin 11.5 L ABG Carboxyhemoglobin 1.9 H POC ABG HHb (Measured) 0.0 ABG Methemoglobin 1.1 Markel Test Pos A-a O2 Difference 142.0 Respiratory Index 0.8 Hgb O2 Saturation 97.0 Vent Mode Prvc Mechanical Rate 20 FiO2 50.0 Tidal Volume 500 PEEP 5 Sodium 141 Potassium 4.7 Chloride 107 Carbon Dioxide 24 Anion Gap 15 BUN 25 H Creatinine 0.8 Est GFR ( Amer) > 60 Est GFR (Non-Af Amer) > 60 Random Glucose 99 Calcium 7.5 L Phosphorus 3.8 Magnesium 1.7 Total Bilirubin 0.4 AST 26 ALT 41 Alkaline Phosphatase 74 Total Protein 5.1 L Albumin 2.7 L Globulin 2.4 Albumin/Globulin Ratio 1.1 04/14/17 14:53 WBC RBC Hgb Hct MCV MCH MCHC RDW Plt Count MPV Neut % (Auto) Lymph % (Auto) [place] % (Auto) Eos % (Auto) Baso % (Auto) Neut # Lymph # [place] # Eos # Baso # Neutrophils % (Manual) Lymphocytes % (Manual) Reactive Lymphs % Monocytes % (Manual) Platelet Estimate Anisocytosis (manual) Puncture Site Lr pCO2 38 pO2 155 H HCO3 23.1 ABG pH 7.38 ABG Total CO2 23.7 ABG O2 Saturation 99.9 H ABG Base Excess -2.3 L ABG Hemoglobin 11.3 L ABG Carboxyhemoglobin 1.8 H POC ABG HHb (Measured) 0.1 ABG Methemoglobin 1.1 Markel Test Pos A-a O2 Difference 83.0 Respiratory Index 0.5 Hgb O2 Saturation 97.0 Vent Mode Mechanical Rate FiO2 40.0 Tidal Volume PEEP Sodium Potassium Chloride Carbon Dioxide Anion Gap BUN Creatinine Est GFR ( Amer) Est GFR (Non-Af Amer) Random Glucose Calcium Phosphorus Magnesium Total Bilirubin AST ALT Alkaline Phosphatase Total Protein Albumin Globulin Albumin/Globulin Ratio
[2017-04-14] MEDS: Azithromycin 500 MG in Sodium Chloride 0.9% 250 ML IVPB SCH (14:12)
--- NOTE | 2017-04-14 14:23 | CARD ---
APPROVED REPORT EKG Measurement Heart [id number] <Conclusion> Normal sinus rhythm Nonspecific T wave abnormality Prolonged QT Abnormal ECG
[2017-04-14 14:57] LABS: ABG ALLEN TEST POS; CARBOXYHEMOGLOBIN 1.8 % (0.5-1.5); DRAW SITE LR; HHB 0.1 % (0.0-5.0); METHEMOGLOBIN 1.1 % (0.0-3.0)
[2017-04-14] MEDS ORDERED: Nitroglycerin 2% Ointment Foilpak UD TOP STA (16:36)
--- NOTE | 2017-04-14 23:26 | CP.PCM.PN ---
Subjective - Date & Time of Evaluation Date of Evaluation: 04/14/17 Time of Evaluation: 20:23 - Subjective Subjective: EXTUBATED, SHE IS BREATHING, ALERT LESS SOB, POSITIVE COUGH, NO NAUSEA Objective - Vital Signs/Intake and Output Vital Signs (last 24 hours): Temp Pulse Resp BP Pulse Ox 97.9 F 85 14 150/80 96 04/14/17 20:00 04/14/17 20:00 04/14/17 20:00 04/14/17 20:00 04/14/17 20:00 Intake and Output: 04/14/17 04/15/17 18:59 06:59 Intake Total 925.6 50 Output Total 500 210 Balance 425.6 -160 - Medications Medications: Current Medications Albuterol/Ipratropium (Duoneb 3 Mg/0.5 Mg (3 Ml) Ud) 3 ml INH RQ6 [facility] Last Admin: 04/14/17 19:03 Dose: 3 ml Anastrozole (Arimidex 1 Mg Tab) 1 mg PO DAILY [facility] Enoxaparin Sodium (Lovenox) 40 mg SC DAILY [facility] Last Admin: 04/14/17 10:37 Dose: 40 mg Gabapentin (Neurontin) 600 mg PO TID [facility] Last Admin: 04/14/17 17:43 Dose: Not Given Cefepime HCl 1 gm/ Dextrose 50 mls @ 100 mls/hr IVPB Q8H [facility] Last Admin: 04/14/17 21:29 Dose: 100 mls/hr Azithromycin 500 mg/ Sodium (Chloride) 250 mls @ 250 mls/hr IVPB Q24H [facility] Last Admin: 04/14/17 14:12 Dose: 250 mls/hr Methimazole (Tapazole) 5 mg PO DAILY [facility] Last Admin: 04/14/17 10:35 Dose: 5 mg Methylprednisolone (Solu-Medrol) 40 mg IV Q12 [facility] Last Admin: 04/14/17 21:30 Dose: 40 mg Metoprolol Tartrate (Lopressor) 25 mg PO BID [facility] Last Admin: 04/14/17 17:42 Dose: Not Given Pantoprazole Sodium (Protonix Susp) 40 mg PO 0600 [facility] Last Admin: 04/14/17 05:13 Dose: 40 mg - Labs Labs: 04/14/17 06:16 04/14/17 06:15 - Constitutional Appears: Non-toxic, No Acute Distress - Head Exam Head Exam: ATRAUMATIC, NORMAL INSPECTION, NORMOCEPHALIC - Eye Exam Eye Exam: EOMI, Normal appearance - ENT Exam ENT Exam: Mucous Membranes Moist, Normal Exam - Neck Exam Neck Exam: Normal Inspection - Respiratory Exam Respiratory Exam: Decreased Breath Sounds, Rhonchi - Cardiovascular Exam Cardiovascular Exam: Tachycardia - GI/Abdominal Exam GI & Abdominal Exam: Soft, Normal Bowel Sounds - Rectal Exam Rectal Exam: Black Stool - Exam Exam: NORMAL INSPECTION - Neurological Exam Neurological Exam: Alert, Awake, CN II-XII Intact, Oriented x3 Assessment and Plan (1) Acute respiratory failure with hypercapnia Assessment & Plan: IMPROVING, EXTUBATED Status: Resolved (2) Acute tracheobronchitis Status: Acute (3) Hypothyroidism Status: Chronic (4) HTN (hypertension) Status: Chronic
[2017-04-15] MEDS: Albuterol-Ipratrop 3 mg / 0.5 (3 ml) UD INH SCH ×4 (01:41→19:51)
[2017-04-15] MEDS: Pantoprazole 40 mg Susp UD PO SCH (06:00)
[2017-04-15 06:33] LABS: BASO % 0.3 % (0.0-2.0); HEMATOCRIT 34.4 % (34.0-47.0); LYMPH # 0.4 K/uL (1.0-4.3); LYMPH % 4.5 % (20.0-40.0); MEAN CELL VOLUME 87.5 fL (81.0-99.0); MEAN CORPUSCULAR HEMOGLOBIN 28.4 pg (27.0-31.0); MEAN CORPUSCULAR HGB CONC 32.5 g/dL (33.0-37.0); MEAN PLATELET VOLUME 7.4 fL (7.2-11.7); MONO # 0.3 K/uL (0.0-0.8); MONO % 3.5 % (0.0-10.0); PLATELET COUNT 344 K/uL (130-400); RED CELL DISTRIBUTION WIDTH 17.5 % (11.5-14.5); WHITE BLOOD COUNT 9.8 K/uL (4.8-10.8)
[2017-04-15 06:56] LABS: ALKALINE PHOSPHATASE 65 U/L (38-126); ALT/SGPT 40 U/L (9-52); AST/SGOT 27 U/L (14-36); BILIRUBIN,TOTAL 0.5 mg/dL (0.2-1.3); BLOOD UREA NITROGEN 27 mg/dL (7-17); CARBON DIOXIDE 24 mmol/L (22-30); CHLORIDE 106 mmol/L (98-107); GFR AFRICAN-AMERICAN > 60; GLUCOSE,RANDOM 79 mg/dL (65-105); PHOSPHOROUS 4.4 mg/dL (2.5-4.5); POTASSIUM 4.6 mmol/L (3.6-5.2); SODIUM 139 mmol/L (132-148); TOTAL PROTEIN 5.2 g/dL (6.3-8.3)
[2017-04-15 08:28] LABS: NEUTROPHIL 94 % (50-75); TOTAL CELLS COUNTED 100
--- NOTE | 2017-04-15 09:18 | RAD ---
Chest x-ray single frontal view History: Intubated. Comparison: 04/14/2017 Findings: Interval removal of an endotracheal and NG tube. Deformity of the right proximal humerus. Deformities of the distal clavicles bilaterally. Surgical clips in the bilateral axilla. Persistent small bilateral pleural effusions. Prominent consolidative changes in the right mid to lower lung zone as well as the left lung base. Diffuse increased interstitial lung markings. Biapical pleural thickening. Upper lobe granulomatous changes. Cardiomegaly. Calcification at the aortic knob. Degenerative changes in the spine. Impression: Persistent small bilateral pleural effusions. Prominent consolidative changes in the right mid to lower lung zone as well as the left lung base. Diffuse increased interstitial lung markings.
[2017-04-15] MEDS: Enoxaparin 40 mg Syringe SC SCH (10:37)
[2017-04-15] MEDS: methIMAzole 5 MG TAB PO SCH (10:38)
[2017-04-15] MEDS: MethylPREDNISolone 40 mg Vial IV SCH ×2 (10:38→22:00)
--- NOTE | 2017-04-15 11:16 | CP.CCUPN ---
<Felisa Zuluaga - Last Filed: 04/15/17 11:14> CCU Subjective - Physician Review Subjective (Free Text): Patient was seen and examined at bedside in the morning and in no acute distress. Patient reports having back pain, loose stools 3 times this morning and nasal dryness from nasal cannula. Patient denies having chest pain, abdominal pain, nausea, vomiting, headaches, fevers, and leg pain. Patient is stable for transfer to inpatient medicine. 04/15/17 11:14 CCU Objective - Vital Signs / Intake & Output Vital Signs (Last 4 hours): Vital Signs BP 04/15/17 10:38 180/74 H Intake and Output (Last 8hrs): Intake & Output 04/14/17 04/15/17 04/15/17 22:59 06:59 14:59 Intake Total 340 125 0 Output Total 450 510 Balance -110 -385 0 Intake: Intake, IV Amount 300 Left Forearm 50 Left Wrist 250 Oral 0 125 0 Tube Feeding 40 Output: Urine 450 510 Urethral (Jean Baptiste) 450 510 Other: # Bowel Movements 1 - Physical Exam Head: Positive for: Atraumatic, Normocephalic Extroacular Muscles: Positive for: EOMI Mouth: Positive for: Moist Mucous Membranes Respiratory/Chest: Positive for: Clear to Auscultation. Negative for: Wheezes, Rales, Rhonchi Cardiovascular: Positive for: Regular Rate and Rhythm, Normal S1, S2 Abdomen: Positive for: Normal Bowel Sounds. Negative for: Tenderness Upper Extremity: Positive for: Edema. Negative for: Normal Inspection (RUE- chronic lymphedema ("for years")) Lower Extremity: Positive for: Normal Inspection, NORMAL PULSES. Negative for: Edema, Tenderness, Swelling Skin: Positive for: Warm, Dry, Normal Color Psychiatric: Positive for: Alert, Oriented x 3 - Medications Active Medications: Active Medications Generic Name Dose Route Start Last Admin Trade Name Freq PRN Reason Stop Dose Admin Albuterol/Ipratropium 3 ml 04/13/17 14:00 04/15/17 08:08 Duoneb 3 Mg/0.5 Mg (3 Ml) Ud INH 3 ml RQ6 NORMA Administration Anastrozole 1 mg 04/15/17 10:00 04/15/17 10:38 Arimidex 1 Mg Tab PO 1 mg DAILY NORMA Administration Enoxaparin Sodium 40 mg 04/13/17 14:15 04/15/17 10:37 Lovenox SC 40 mg DAILY NORMA Administration Gabapentin 600 mg 04/13/17 18:00 04/15/17 10:38 Neurontin PO 600 mg TID NORMA Administration Cefepime HCl 1 gm/ Dextrose 50 mls @ 100 mls/hr 04/13/17 14:00 04/15/17 06:00 IVPB 100 mls/hr Q8H NORMA Administration Azithromycin 500 mg/ Sodium 250 mls @ 250 mls/hr 04/13/17 15:00 04/14/17 14: 12 Chloride IVPB 250 mls/hr Q24H NORMA Administration Methimazole 5 mg 04/13/17 14:15 04/15/17 10:38 Tapazole PO 5 mg DAILY NORMA Administration Methylprednisolone 40 mg 04/13/17 22:00 04/15/17 10:38 Solu-Medrol IV 40 mg Q12 NORMA Administration Metoprolol Tartrate 25 mg 04/14/17 10:00 04/15/17 10:38 Lopressor PO 25 mg BID NORMA Administration Pantoprazole Sodium 40 mg 04/14/17 06:00 04/15/17 06:00 Protonix Susp PO 40 mg 0600 NORMA Administration - Patient Studies Lab Studies: Microbiology Studies 04/13/17 17:00 Blood Culture - Preliminary Blood NO GROWTH AFTER 24 HOURS 04/13/17 17:00 Blood Culture - Preliminary Blood NO GROWTH AFTER 24 HOURS Lab Studies 04/15/17 04/15/17 04/14/17 Range/Units 06:24 06:24 14:53 WBC 9.8 (4.8-10.8) K/uL RBC 3.93 (3.80-5.20) Mil/uL Hgb 11.2 (11.0-16.0) g/dL Hct 34.4 (34.0-47.0) % MCV 87.5 (81.0-99.0) fL MCH 28.4 (27.0-31.0) pg MCHC 32.5 L (33.0-37.0) g/dL RDW 17.5 H (11.5-14.5) % Plt Count 344 (130-400) K/uL MPV 7.4 (7.2-11.7) fL Neut % (Auto) 91.7 H (50.0-75.0) % Lymph % (Auto) 4.5 L (20.0-40.0) % [place] % (Auto) 3.5 (0.0-10.0) % Eos % (Auto) 0.0 (0.0-4.0) % Baso % (Auto) 0.3 (0.0-2.0) % Neut # 8.9 H (1.8-7.0) K/uL Lymph # 0.4 L (1.0-4.3) K/uL [place] # 0.3 (0.0-0.8) K/uL Eos # 0.0 (0.0-0.7) K/uL Baso # 0.0 (0.0-0.2) K/uL Neutrophils % (Manual) 94 H (50-75) % Lymphocytes % (Manual) 3 L (20-40) % Monocytes % (Manual) 3 (0-10) % Platelet Estimate Normal (NORMAL) Hypochromasia (manual) Slight Poikilocytosis (manual Slight Anisocytosis (manual) Slight Puncture Site Lr pCO2 38 (35-45) mm/Hg pO2 155 H (80-100) mm/Hg HCO3 23.1 (21-28) mmol/L ABG pH 7.38 (7.35-7.45) ABG Total CO2 23.7 (22-28) mmol/L ABG O2 Saturation 99.9 H (95-98) % ABG Base Excess -2.3 L (-2.0-3.0) mmol/L ABG Hemoglobin 11.3 L (11.7-17.4) g/dL ABG Carboxyhemoglobin 1.8 H (0.5-1.5) % POC ABG HHb (Measured) 0.1 (0.0-5.0) % ABG Methemoglobin 1.1 (0.0-3.0) % Markel Test Pos A-a O2 Difference 83.0 mm/Hg Respiratory Index 0.5 Hgb O2 Saturation 97.0 (95.0-98.0) % FiO2 40.0 % Sodium 139 (132-148) mmol/L Potassium 4.6 (3.6-5.2) mmol/L Chloride 106 (98-107) mmol/L Carbon Dioxide 24 (22-30) mmol/L Anion Gap 13 (10-20) BUN 27 H (7-17) mg/dL Creatinine 0.7 (0.7-1.2) MG/DL Est GFR ( Amer) > 60 Est GFR (Non-Af Amer) > 60 Random Glucose 79 (65-105) mg/dL Calcium 8.0 L (8.6-10.4) mg/dl Phosphorus 4.4 (2.5-4.5) mg/dL Magnesium 2.0 (1.6-2.3) mg/dL Total Bilirubin 0.5 (0.2-1.3) mg/dL AST 27 (14-36) U/L ALT 40 (9-52) U/L Alkaline Phosphatase 65 (38-126) U/L Total Protein 5.2 L (6.3-8.3) g/dL Albumin 2.6 L (3.5-5.0) g/dL Globulin 2.6 (2.2-3.9) gm/dL Albumin/Globulin Ratio 1.0 (1.0-2.1) Laboratory Results - last 24 hr 04/14/17 04/15/17 04/15/17 14:53 06:24 06:24 WBC 9.8 RBC 3.93 Hgb 11.2 Hct 34.4 MCV 87.5 MCH 28.4 MCHC 32.5 L RDW 17.5 H Plt Count 344 MPV 7.4 Neut % (Auto) 91.7 H Lymph % (Auto) 4.5 L [place] % (Auto) 3.5 Eos % (Auto) 0.0 Baso % (Auto) 0.3 Neut # 8.9 H Lymph # 0.4 L [place] # 0.3 Eos # 0.0 Baso # 0.0 Neutrophils % (Manual) 94 H Lymphocytes % (Manual) 3 L Monocytes % (Manual) 3 Platelet Estimate Normal Hypochromasia (manual) Slight Poikilocytosis (manual Slight Anisocytosis (manual) Slight Puncture Site Lr pCO2 38 pO2 155 H HCO3 23.1 ABG pH 7.38 ABG Total CO2 23.7 ABG O2 Saturation 99.9 H ABG Base Excess -2.3 L ABG Hemoglobin 11.3 L ABG Carboxyhemoglobin 1.8 H POC ABG HHb (Measured) 0.1 ABG Methemoglobin 1.1 Markel Test Pos A-a O2 Difference 83.0 Respiratory Index 0.5 Hgb O2 Saturation 97.0 FiO2 40.0 Sodium 139 Potassium 4.6 Chloride 106 Carbon Dioxide 24 Anion Gap 13 BUN 27 H Creatinine 0.7 Est GFR ( Amer) > 60 Est GFR (Non-Af Amer) > 60 Random Glucose 79 Calcium 8.0 L Phosphorus 4.4 Magnesium 2.0 Total Bilirubin 0.5 AST 27 ALT 40 Alkaline Phosphatase 65 Total Protein 5.2 L Albumin 2.6 L Globulin 2.6 Albumin/Globulin Ratio 1.0 Review of Systems - Constitutional Constitutional: absent: Fever - Cardiovascular Cardiovascular: Edema (RUE). absent: Chest Pain, Dyspnea - Respiratory Respiratory: absent: Cough, Dyspnea - Gastrointestinal Gastrointestinal: Loose Stools. absent: Abdominal Pain, Constipation, Nausea, Vomiting - Genitourinary Genitourinary: absent: Dysuria - Musculoskeletal Musculoskeletal: Back Pain - Neurological Neurological: absent: Dizziness Assessment/Plan - Assessment and Plan (Free Text) Assessment: Patient is stable for transfer to inpatient medicine. Neuro: Alert and oriented x3 Pulm: Acute respiratory failure secondary to acute exacerbation of COPD and concomitant healthcare associated pneumonia. - IV steroids, DuoNeb nebs, IV antibiotics, mucolytic. - Nasal Cannula 3L CV: Hemodynamically stable. Hypertension, we'll restart meds once pressure starts to rise. - Metoprolol 25mg PO BID Hem: Anemia of chronic disease Renal: No acute issues, urine output within normal limits, will monitor. Endo: - Hyperthyroidism: continue methimazole GI: - NPO - Swallow eval - Loose stool- F/U C.Diff and stool studies ID: Severe sepsis secondary to healthcare associated pneumonia - Continue cefepime and azithromycin. Prophylaxis - DVT- Lovenox - GI- Protonix - Discontinued Jean Baptiste Code status - full code <Vicente Cabrera S - Last Filed: 04/15/17 18:11> CCU Objective - Vital Signs / Intake & Output Vital Signs (Last 4 hours): Vital Signs Pulse Resp BP Pulse Ox 04/15/17 17:40 89 19 92 L 04/15/17 17:30 90 26 H 93 L 04/15/17 17:20 85 17 04/15/17 17:10 91 H 15 04/15/17 17:00 97 H 19 04/15/17 16:50 85 16 04/15/17 16:41 98 H 26 H 04/15/17 16:30 87 18 95 04/15/17 16:20 88 17 95 04/15/17 16:10 87 16 97 04/15/17 16:00 85 16 97 04/15/17 15:56 91 H 17 134/81 96 04/15/17 15:50 87 15 96 04/15/17 15:40 84 16 95 04/15/17 15:30 81 16 95 04/15/17 15:20 78 16 96 04/15/17 15:10 88 26 H 97 04/15/17 15:00 77 15 96 04/15/17 14:56 76 12 159/76 H 96 04/15/17 14:50 76 13 96 04/15/17 14:40 75 14 99 04/15/17 14:30 72 16 98 04/15/17 14:20 71 15 100 Intake and Output (Last 8hrs): Intake & Output 04/15/17 04/15/17 04/15/17 06:59 14:59 22:59 Intake Total 125 120 200 Output Total 510 190 Balance -385 -70 200 Weight 110 lb Intake: Oral 125 120 200 Output: Urine 510 Urethral (Jean Baptiste) 510 Stool 190 Other: # Voids Urethral (Jean Baptiste) 1 # Bowel Movements 11 - Medications Active Medications: Active Medications Generic Name Dose Route Start Last Admin Trade Name Freq PRN Reason Stop Dose Admin Albuterol/Ipratropium 3 ml 04/13/17 14:00 04/15/17 14:05 Duoneb 3 Mg/0.5 Mg (3 Ml) Ud INH 3 ml RQ6 NORMA Administration Anastrozole 1 mg 04/15/17 10:00 04/15/17 10:38 Arimidex 1 Mg Tab PO 1 mg DAILY NORMA Administration Enoxaparin Sodium 40 mg 04/13/17 14:15 04/15/17 10:37 Lovenox SC 40 mg DAILY NORMA Administration Gabapentin 600 mg 04/13/17 18:00 04/15/17 10:38 Neurontin PO 600 mg TID NORMA Administration Cefepime HCl 1 gm/ Dextrose 50 mls @ 100 mls/hr 04/13/17 14:00 04/15/17 06:00 IVPB 100 mls/hr Q8H NORMA Administration Azithromycin 500 mg/ Sodium 250 mls @ 250 mls/hr 04/13/17 15:00 04/14/17 14: 12 Chloride IVPB 250 mls/hr Q24H NORMA Administration Methimazole 5 mg 04/13/17 14:15 04/15/17 10:38 Tapazole PO 5 mg DAILY NORMA Administration Methylprednisolone 40 mg 04/13/17 22:00 04/15/17 10:38 Solu-Medrol IV 40 mg Q12 NORMA Administration Metoprolol Tartrate 25 mg 04/14/17 10:00 04/15/17 10:38 Lopressor PO 25 mg BID NORMA Administration Pantoprazole Sodium 40 mg 04/14/17 06:00 04/15/17 06:00 Protonix Susp PO 40 mg 0600 NORMA Administration - Patient Studies Lab Studies: Microbiology Studies 04/13/17 17:00 Blood Culture - Preliminary Blood NO GROWTH AFTER 48 HOURS 04/13/17 17:00 Blood Culture - Preliminary Blood NO GROWTH AFTER 48 HOURS Lab Studies 04/15/17 04/15/17 04/15/17 Range/Units 11:14 06:24 06:24 WBC 9.8 (4.8-10.8) K/uL RBC 3.93 (3.80-5.20) Mil/uL Hgb 11.2 (11.0-16.0) g/dL Hct 34.4 (34.0-47.0) % MCV 87.5 (81.0-99.0) fL MCH 28.4 (27.0-31.0) pg MCHC 32.5 L (33.0-37.0) g/dL RDW 17.5 H (11.5-14.5) % Plt Count 344 (130-400) K/uL MPV 7.4 (7.2-11.7) fL Neut % (Auto) 91.7 H (50.0-75.0) % Lymph % (Auto) 4.5 L (20.0-40.0) % [place] % (Auto) 3.5 (0.0-10.0) % Eos % (Auto) 0.0 (0.0-4.0) % Baso % (Auto) 0.3 (0.0-2.0) % Neut # 8.9 H (1.8-7.0) K/uL Lymph # 0.4 L (1.0-4.3) K/uL [place] # 0.3 (0.0-0.8) K/uL Eos # 0.0 (0.0-0.7) K/uL Baso # 0.0 (0.0-0.2) K/uL Neutrophils % (Manual) 94 H (50-75) % Lymphocytes % (Manual) 3 L (20-40) % Monocytes % (Manual) 3 (0-10) % Platelet Estimate Normal (NORMAL) Hypochromasia (manual) Slight Poikilocytosis (manual Slight Anisocytosis (manual) Slight Sodium 139 (132-148) mmol/L Potassium 4.6 (3.6-5.2) mmol/L Chloride 106 (98-107) mmol/L Carbon Dioxide 24 (22-30) mmol/L Anion Gap 13 (10-20) BUN 27 H (7-17) mg/dL Creatinine 0.7 (0.7-1.2) MG/DL Est GFR ( Amer) > 60 Est GFR (Non-Af Amer) > 60 Random Glucose 79 (65-105) mg/dL Calcium 8.0 L (8.6-10.4) mg/dl Phosphorus 4.4 (2.5-4.5) mg/dL Magnesium 2.0 (1.6-2.3) mg/dL Total Bilirubin 0.5 (0.2-1.3) mg/dL AST 27 (14-36) U/L ALT 40 (9-52) U/L Alkaline Phosphatase 65 (38-126) U/L Total Protein 5.2 L (6.3-8.3) g/dL Albumin 2.6 L (3.5-5.0) g/dL Globulin 2.6 (2.2-3.9) gm/dL Albumin/Globulin Ratio 1.0 (1.0-2.1) C. difficile Ag & Toxin Negative (NEGATIVE) Laboratory Results - last 24 hr 04/15/17 04/15/17 04/15/17 06:24 06:24 11:14 WBC 9.8 RBC 3.93 Hgb 11.2 Hct 34.4 MCV 87.5 MCH 28.4 MCHC 32.5 L RDW 17.5 H Plt Count 344 MPV 7.4 Neut % (Auto) 91.7 H Lymph % (Auto) 4.5 L [place] % (Auto) 3.5 Eos % (Auto) 0.0 Baso % (Auto) 0.3 Neut # 8.9 H Lymph # 0.4 L [place] # 0.3 Eos # 0.0 Baso # 0.0 Neutrophils % (Manual) 94 H Lymphocytes % (Manual) 3 L Monocytes % (Manual) 3 Platelet Estimate Normal Hypochromasia (manual) Slight Poikilocytosis (manual Slight Anisocytosis (manual) Slight Sodium 139 Potassium 4.6 Chloride 106 Carbon Dioxide 24 Anion Gap 13 BUN 27 H Creatinine 0.7 Est GFR ( Amer) > 60 Est GFR (Non-Af Amer) > 60 Random Glucose 79 Calcium 8.0 L Phosphorus 4.4 Magnesium 2.0 Total Bilirubin 0.5 AST 27 ALT 40 Alkaline Phosphatase 65 Total Protein 5.2 L Albumin 2.6 L Globulin 2.6 Albumin/Globulin Ratio 1.0 C. difficile Ag & Toxin Negative Critical Care Progress Note - Nutrition Nutrition: Nutrition Category Date Time Status Regular Diet [DIET] Diets 04/15/17 Dinner Active Attending/Attestation - Attestation I have personally seen and examined this patient.: Yes I have fully participated in the care of the patient.: Yes I have reviewed all pertinent clinical information: Yes Notes (Text): 04/15/17 18:10 Patient is stable for transfer to inpatient medicine.
[2017-04-15] MEDS: Azithromycin 500 MG in Sodium Chloride 0.9% 250 ML IVPB SCH (15:00)
[2017-04-15] MEDS ORDERED: Saccharomyces Boulardi 250 mg Cap PO ONE (17:29)
[2017-04-15] MEDS: Saccharomyces Boulardi 250 mg Cap PO SCH (19:07)
--- NOTE | 2017-04-15 23:45 | CP.PCM.PN ---
Subjective - Date & Time of Evaluation Date of Evaluation: 04/15/17 Time of Evaluation: 20:27 - Subjective Subjective: LESS SOB, C/O CHEST PAIN, COUGH AND CONGESTION, NO NAUSEA, NO VOMITING Objective - Vital Signs/Intake and Output Vital Signs (last 24 hours): Temp Pulse Resp BP Pulse Ox 98.4 F 89 19 157/81 H 92 L 04/15/17 18:00 04/15/17 17:40 04/15/17 17:40 04/15/17 19:07 04/15/17 17:40 Intake and Output: 04/15/17 04/16/17 18:59 06:59 Intake Total 320 Output Total 190 Balance 130 - Medications Medications: Current Medications Albuterol/Ipratropium (Duoneb 3 Mg/0.5 Mg (3 Ml) Ud) 3 ml INH RQ6 [facility] Last Admin: 04/15/17 19:51 Dose: 3 ml Anastrozole (Arimidex 1 Mg Tab) 1 mg PO DAILY [facility] Last Admin: 04/15/17 10:38 Dose: 1 mg Enoxaparin Sodium (Lovenox) 40 mg SC DAILY [facility] Last Admin: 04/15/17 10:37 Dose: 40 mg Gabapentin (Neurontin) 600 mg PO TID [facility] Last Admin: 04/15/17 19:07 Dose: 600 mg Cefepime HCl 1 gm/ Dextrose 50 mls @ 100 mls/hr IVPB Q8H [facility] Last Admin: 04/15/17 22:00 Dose: 100 mls/hr Azithromycin 500 mg/ Sodium (Chloride) 250 mls @ 250 mls/hr IVPB Q24H [facility] Last Admin: 04/15/17 15:00 Dose: 250 mls/hr Methimazole (Tapazole) 5 mg PO DAILY [facility] Last Admin: 04/15/17 10:38 Dose: 5 mg Methylprednisolone (Solu-Medrol) 40 mg IV Q12 [facility] Last Admin: 04/15/17 22:00 Dose: 40 mg Metoprolol Tartrate (Lopressor) 25 mg PO BID [facility] Last Admin: 04/15/17 19:07 Dose: 25 mg Nitroglycerin (Nitrostat Sl Tab) 0.4 mg SL Q5M PRN PRN Reason: Chest Pain Last Admin: 04/15/17 22:41 Dose: 0.4 mg Pantoprazole Sodium (Protonix Susp) 40 mg PO 0600 [facility] Last Admin: 04/15/17 06:00 Dose: 40 mg Saccharomyces Boulardii (Florastor) 250 mg PO DAILY [facility] Last Admin: 04/15/17 19:07 Dose: 250 mg - Labs Labs: 04/15/17 06:24 04/15/17 06:24 - Constitutional Appears: Non-toxic, No Acute Distress - Head Exam Head Exam: ATRAUMATIC, NORMAL INSPECTION, NORMOCEPHALIC - Eye Exam Eye Exam: EOMI, Normal appearance Pupil Exam: NORMAL ACCOMODATION - ENT Exam ENT Exam: Mucous Membranes Moist, Normal Exam - Respiratory Exam Respiratory Exam: Rales, Rhonchi, Wheezes - Cardiovascular Exam Cardiovascular Exam: Tachycardia, REGULAR RHYTHM, +S1, +S2 - GI/Abdominal Exam GI & Abdominal Exam: Soft, Normal Bowel Sounds - Rectal Exam Rectal Exam: NORMAL INSPECTION - Neurological Exam Neurological Exam: Abnormal Gait, Alert, Awake, CN II-XII Intact, Oriented x3 Assessment and Plan (1) Acute respiratory failure with hypercapnia Status: Resolved (2) Acute tracheobronchitis Status: Acute (3) Hypothyroidism Status: Chronic (4) HTN (hypertension) Status: Chronic
[2017-04-16] MEDS: Albuterol-Ipratrop 3 mg / 0.5 (3 ml) UD INH SCH ×4 (01:55→20:15)
[2017-04-16] MEDS: Pantoprazole 40 mg Susp UD PO SCH (05:17)
[2017-04-16 06:37] LABS: BASO % 0.1 % (0.0-2.0); LYMPH # 0.3 K/uL (1.0-4.3); LYMPH % 3.5 % (20.0-40.0); MEAN CELL VOLUME 88.1 fL (81.0-99.0); MEAN CORPUSCULAR HEMOGLOBIN 28.1 pg (27.0-31.0); MEAN CORPUSCULAR HGB CONC 31.9 g/dL (33.0-37.0); MEAN PLATELET VOLUME 7.3 fL (7.2-11.7); MONO # 0.2 K/uL (0.0-0.8); PLATELET COUNT 319 K/uL (130-400); RED CELL DISTRIBUTION WIDTH 17.1 % (11.5-14.5); WHITE BLOOD COUNT 9.1 K/uL (4.8-10.8)
[2017-04-16 06:47] LABS: ALKALINE PHOSPHATASE 73 U/L (38-126); ALT/SGPT 33 U/L (9-52); AST/SGOT 20 U/L (14-36); BILIRUBIN,TOTAL 0.3 mg/dL (0.2-1.3); BLOOD UREA NITROGEN 25 mg/dL (7-17); CALCIUM 7.9 mg/dl (8.6-10.4); CARBON DIOXIDE 24 mmol/L (22-30); CHLORIDE 105 mmol/L (98-107); GFR AFRICAN-AMERICAN > 60; GLUCOSE,RANDOM 173 mg/dL (65-105); MAGNESIUM 1.7 mg/dL (1.6-2.3); PHOSPHOROUS 3.8 mg/dL (2.5-4.5); SODIUM 138 mmol/L (132-148); TOTAL PROTEIN 5.4 g/dL (6.3-8.3)
[2017-04-16 08:34] LABS: NEUTROPHIL 94 % (50-75); TOTAL CELLS COUNTED 100
[2017-04-16] MEDS: Saccharomyces Boulardi 250 mg Cap PO SCH (09:30)
[2017-04-16] MEDS: methIMAzole 5 MG TAB PO SCH (09:31)
[2017-04-16] MEDS: Pantoprazole 40 mg EC Tab PO SCH (09:32)
[2017-04-16] MEDS: MethylPREDNISolone 40 mg Vial IV SCH ×2 (09:33→21:45)
[2017-04-16] MEDS: Enoxaparin 40 mg Syringe SC SCH (09:42)
[2017-04-16] MEDS: Lidocaine 5% Patch TD SCH (14:28)
[2017-04-16] MEDS: Azithromycin 500 MG in Sodium Chloride 0.9% 250 ML IVPB SCH (15:40)
--- NOTE | 2017-04-16 19:29 | CARD ---
APPROVED REPORT EKG Measurement Heart [id number] <Conclusion> Normal sinus rhythm Minimal voltage criteria for LVH, may be normal variant Borderline ECG
[2017-04-17] MEDS: Albuterol-Ipratrop 3 mg / 0.5 (3 ml) UD INH SCH ×4 (01:35→19:16)
--- NOTE | 2017-04-17 03:01 | CP.PCM.PN ---
Subjective - Date & Time of Evaluation Date of Evaluation: 04/16/17 Time of Evaluation: 20:29 - Subjective Subjective: cough and congestion, less sob, more alert, no fever, no nausea Objective - Vital Signs/Intake and Output Vital Signs (last 24 hours): Temp Pulse Resp BP Pulse Ox 98.7 F 83 20 115/63 96 04/17/17 00:00 04/17/17 00:00 04/17/17 00:00 04/17/17 00:00 04/17/17 00:00 Intake and Output: 04/16/17 04/17/17 18:59 06:59 Intake Total 800 Output Total 325 Balance 475 - Medications Medications: Current Medications Albuterol/Ipratropium (Duoneb 3 Mg/0.5 Mg (3 Ml) Ud) 3 ml INH RQ6 [facility] Last Admin: 04/17/17 01:35 Dose: 3 ml Anastrozole (Arimidex 1 Mg Tab) 1 mg PO DAILY [facility] Last Admin: 04/16/17 09:31 Dose: 1 mg Enoxaparin Sodium (Lovenox) 40 mg SC DAILY [facility] Last Admin: 04/16/17 09:42 Dose: 40 mg Gabapentin (Neurontin) 600 mg PO TID [facility] Last Admin: 04/16/17 17:44 Dose: 600 mg Cefepime HCl 1 gm/ Dextrose 50 mls @ 100 mls/hr IVPB Q8H [facility] Last Admin: 04/16/17 21:46 Dose: 100 mls/hr Azithromycin 500 mg/ Sodium (Chloride) 250 mls @ 250 mls/hr IVPB Q24H [facility] Last Admin: 04/16/17 15:40 Dose: 250 mls/hr Lidocaine (Lidoderm) 1 ea TD DAILY [facility] Last Admin: 04/16/17 14:28 Dose: 1 ea Loperamide HCl (Imodium) 2 mg PO Q4H PRN PRN Reason: Diarrhea Last Admin: 04/16/17 21:48 Dose: 2 mg Methimazole (Tapazole) 5 mg PO DAILY [facility] Last Admin: 04/16/17 09:31 Dose: 5 mg Methylprednisolone (Solu-Medrol) 40 mg IV Q12 [facility] Last Admin: 04/16/17 21:45 Dose: 40 mg Metoprolol Tartrate (Lopressor) 25 mg PO BID [facility] Last Admin: 04/16/17 17:43 Dose: 25 mg Nitroglycerin (Nitrostat Sl Tab) 0.4 mg SL Q5M PRN PRN Reason: Chest Pain Last Admin: 04/15/17 22:41 Dose: 0.4 mg Pantoprazole Sodium (Protonix Ec Tab) 40 mg PO 0600 [facility] Last Admin: 04/16/17 09:32 Dose: 40 mg Saccharomyces Boulardii (Florastor) 250 mg PO DAILY [facility] Last Admin: 04/16/17 09:30 Dose: 250 mg - Labs Labs: 04/16/17 06:27 04/16/17 06:27 - Constitutional Appears: Non-toxic, No Acute Distress - Head Exam Head Exam: ATRAUMATIC, NORMAL INSPECTION, NORMOCEPHALIC - Eye Exam Eye Exam: EOMI, Normal appearance, PERRL Pupil Exam: NORMAL ACCOMODATION - ENT Exam ENT Exam: Mucous Membranes Moist, Normal Exam, Normal Oropharynx, TM's Normal Bilaterally - Neck Exam Neck Exam: Normal Inspection - Respiratory Exam Respiratory Exam: Decreased Breath Sounds, Rales, Rhonchi - Cardiovascular Exam Cardiovascular Exam: REGULAR RHYTHM, +S1, +S2 - GI/Abdominal Exam GI & Abdominal Exam: Soft, Normal Bowel Sounds - Rectal Exam Rectal Exam: NORMAL INSPECTION - Extremities Exam Extremities Exam: Full ROM, Normal Capillary Refill - Neurological Exam Neurological Exam: Alert, Awake, CN II-XII Intact, Oriented x3 Assessment and Plan (1) Acute respiratory failure with hypercapnia Assessment & Plan: OFF MV SHE IS COMFORTABLE, ON ANTIBIOTICS Status: Resolved (2) Acute tracheobronchitis Assessment & Plan: PNEUMONIA ON CXR Status: Acute (3) Hypothyroidism Status: Chronic (4) HTN (hypertension) Status: Chronic
--- NOTE | 2017-04-17 03:03 | CP.PCM.PN ---
Subjective - Date & Time of Evaluation Date of Evaluation: 04/16/17 Time of Evaluation: 20:30 - Subjective Subjective: FEELS WELL, NATHALIE COUGH, NO FEVER, NO NAUSEA Objective - Vital Signs/Intake and Output Vital Signs (last 24 hours): Temp Pulse Resp BP Pulse Ox 98.7 F 83 20 115/63 96 04/17/17 00:00 04/17/17 00:00 04/17/17 00:00 04/17/17 00:00 04/17/17 00:00 Intake and Output: 04/16/17 04/17/17 18:59 06:59 Intake Total 800 Output Total 325 Balance 475 - Medications Medications: Current Medications Albuterol/Ipratropium (Duoneb 3 Mg/0.5 Mg (3 Ml) Ud) 3 ml INH RQ6 [facility] Last Admin: 04/17/17 01:35 Dose: 3 ml Anastrozole (Arimidex 1 Mg Tab) 1 mg PO DAILY [facility] Last Admin: 04/16/17 09:31 Dose: 1 mg Enoxaparin Sodium (Lovenox) 40 mg SC DAILY [facility] Last Admin: 04/16/17 09:42 Dose: 40 mg Gabapentin (Neurontin) 600 mg PO TID [facility] Last Admin: 04/16/17 17:44 Dose: 600 mg Cefepime HCl 1 gm/ Dextrose 50 mls @ 100 mls/hr IVPB Q8H [facility] Last Admin: 04/16/17 21:46 Dose: 100 mls/hr Azithromycin 500 mg/ Sodium (Chloride) 250 mls @ 250 mls/hr IVPB Q24H [facility] Last Admin: 04/16/17 15:40 Dose: 250 mls/hr Lidocaine (Lidoderm) 1 ea TD DAILY [facility] Last Admin: 04/16/17 14:28 Dose: 1 ea Loperamide HCl (Imodium) 2 mg PO Q4H PRN PRN Reason: Diarrhea Last Admin: 04/16/17 21:48 Dose: 2 mg Methimazole (Tapazole) 5 mg PO DAILY [facility] Last Admin: 04/16/17 09:31 Dose: 5 mg Methylprednisolone (Solu-Medrol) 40 mg IV Q12 [facility] Last Admin: 04/16/17 21:45 Dose: 40 mg Metoprolol Tartrate (Lopressor) 25 mg PO BID [facility] Last Admin: 04/16/17 17:43 Dose: 25 mg Nitroglycerin (Nitrostat Sl Tab) 0.4 mg SL Q5M PRN PRN Reason: Chest Pain Last Admin: 04/15/17 22:41 Dose: 0.4 mg Pantoprazole Sodium (Protonix Ec Tab) 40 mg PO 0600 [facility] Last Admin: 04/16/17 09:32 Dose: 40 mg Saccharomyces Boulardii (Florastor) 250 mg PO DAILY [facility] Last Admin: 04/16/17 09:30 Dose: 250 mg - Labs Labs: 04/16/17 06:27 04/16/17 06:27 - Constitutional Appears: Non-toxic, No Acute Distress, Chronically Ill - Head Exam Head Exam: ATRAUMATIC, NORMAL INSPECTION, NORMOCEPHALIC - Eye Exam Eye Exam: EOMI, Normal appearance, PERRL Pupil Exam: NORMAL ACCOMODATION - ENT Exam ENT Exam: Mucous Membranes Moist, Normal Exam - Neck Exam Neck Exam: Normal Inspection - Respiratory Exam Respiratory Exam: Decreased Breath Sounds, Prolonged Expiratory Phase, Rales, Rhonchi, Wheezes - Cardiovascular Exam Cardiovascular Exam: REGULAR RHYTHM, +S1, +S2 - GI/Abdominal Exam GI & Abdominal Exam: Soft, Normal Bowel Sounds - Rectal Exam Rectal Exam: NORMAL INSPECTION - Extremities Exam Extremities Exam: Normal Capillary Refill, Normal Inspection - Neurological Exam Neurological Exam: Alert, Awake, CN II-XII Intact, Oriented x3 Assessment and Plan (1) Acute respiratory failure with hypercapnia Assessment & Plan: OFF MV, LESS SOB Status: Resolved (2) Acute tracheobronchitis Assessment & Plan: PNEUMONIA ON CXR Status: Acute (3) Hypothyroidism Status: Chronic (4) HTN (hypertension) Status: Chronic
[2017-04-17] MEDS: Pantoprazole 40 mg EC Tab PO SCH (05:28)
[2017-04-17] MEDS: Saccharomyces Boulardi 250 mg Cap PO SCH (10:19)
[2017-04-17] MEDS: Enoxaparin 40 mg Syringe SC SCH (10:20)
[2017-04-17] MEDS: MethylPREDNISolone 40 mg Vial IV SCH ×2 (10:21→21:58)
[2017-04-17] MEDS: methIMAzole 5 MG TAB PO SCH (10:21)
[2017-04-17] MEDS: Lidocaine 5% Patch TD SCH (10:26)
[2017-04-17] MEDS: Azithromycin 500 MG in Sodium Chloride 0.9% 250 ML IVPB SCH (14:16)
[2017-04-18] MEDS: Albuterol-Ipratrop 3 mg / 0.5 (3 ml) UD INH SCH ×4 (01:22→19:51)
[2017-04-18 06:26] LABS: BASO % 0.1 % (0.0-2.0); HEMATOCRIT 35.6 % (34.0-47.0); LYMPH # 0.4 K/uL (1.0-4.3); LYMPH % 3.2 % (20.0-40.0); MEAN CELL VOLUME 87.8 fL (81.0-99.0); MEAN CORPUSCULAR HEMOGLOBIN 28.7 pg (27.0-31.0); MEAN CORPUSCULAR HGB CONC 32.7 g/dL (33.0-37.0); MEAN PLATELET VOLUME 7.3 fL (7.2-11.7); MONO # 0.4 K/uL (0.0-0.8); MONO % 3.4 % (0.0-10.0); PLATELET COUNT 313 K/uL (130-400); RED CELL DISTRIBUTION WIDTH 17.4 % (11.5-14.5); WHITE BLOOD COUNT 11.2 K/uL (4.8-10.8)
[2017-04-18 06:49] LABS: BLOOD UREA NITROGEN 21 mg/dL (7-17); CALCIUM 7.8 mg/dl (8.6-10.4); CARBON DIOXIDE 26 mmol/L (22-30); CHLORIDE 104 mmol/L (98-107); GFR AFRICAN-AMERICAN > 60; GLUCOSE,RANDOM 131 mg/dL (65-105); POTASSIUM 3.5 mmol/L (3.6-5.2); SODIUM 141 mmol/L (132-148)
[2017-04-18] MEDS: Pantoprazole 40 mg EC Tab PO SCH (06:49)
[2017-04-18 08:38] LABS: NEUTROPHIL 95 % (50-75); TOTAL CELLS COUNTED 100
[2017-04-18] MEDS: Saccharomyces Boulardi 250 mg Cap PO SCH (10:50)
[2017-04-18] MEDS: Lidocaine 5% Patch TD SCH (10:50)
[2017-04-18] MEDS: MethylPREDNISolone 40 mg Vial IV SCH ×2 (10:50→21:51)
[2017-04-18] MEDS: methIMAzole 5 MG TAB PO SCH (10:50)
[2017-04-18] MEDS: Enoxaparin 40 mg Syringe SC SCH (10:50)
[2017-04-18] MEDS: Azithromycin 500 MG in Sodium Chloride 0.9% 250 ML IVPB SCH (15:08)
[2017-04-18] MEDS ORDERED: Potassium Chloride 20 mEq ER Tab PO ONE (15:59)
--- NOTE | 2017-04-18 19:52 | CP.PCM.CON ---
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 p/ w recurrent acute exacerbation of COPD (AECOPD) with acute respiratory failure. Intubated in ED (04/13) and admitted to intensive care unit and patient was weaned off ventilator and treated for COPD exacerbation/pneumonia. Patient complaining of dry cough and dyspnea on minimal exertion Review of Systems - Review of Systems All systems: reviewed and no additional remarkable complaints except (Shortness of breath) Past Patient History - Infectious Disease Hx of Infectious Diseases: None - Tetanus Immunizations Tetanus Immunization: Unknown - Past Medical History & Family History Past Medical History?: Yes - Past Social History Smoking Status: Former Smoker - CARDIAC Hx Congestive Heart Failure: Yes Hx Hypertension: Yes - PULMONARY Hx Chronic Obstructive Pulmonary Disease (COPD): Yes - NEUROLOGICAL Hx Neurological Disorder: Yes Other/Comment: Peripheral neuropathy right lower extremity. 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 - RENAL Hx Chronic Kidney Disease: No - ENDOCRINE/METABOLIC Hx Hypothyroidism: Yes - HEMATOLOGICAL/ONCOLOGICAL Hx Anemia: Yes - INTEGUMENTARY Hx Dermatological Problems: No - MUSCULOSKELETAL/RHEUMATOLOGICAL Hx Arthritis: Yes - GASTROINTESTINAL Hx Gall Bladder Disease: Yes - GENITOURINARY/GYNECOLOGICAL Hx Genitourinary Disorders: No - PSYCHIATRIC Hx Anxiety: Yes Hx Substance Use: No - SURGICAL HISTORY Hx Surgeries: Yes Hx Mastectomy: Yes (right in 1998; left in 2008) Hx Orthopedic Surgery: Yes (2003 rigtht shoulder prosthesis, removal of hardware 2013) Hx Tubal Ligation: Yes Other/Comment: shoulder and humerous replacement with joint space infection and eventual removal of hardware in right shoulder and chronic lymphedema of RUE, groin cyst removal, cervical spinal fusion 2007, lumbar spinal fusion 2007. - ANESTHESIA Hx Anesthesia: Yes Hx Anesthesia Reactions: No Hx Malignant Hyperthermia: No Meds Allergies/Adverse Reactions: Allergies Allergy/AdvReac Type Severity Reaction Status Date / Time paper tape Allergy RASH Uncoded 03/11/17 18:30 - Medications Medications: Current Medications Albuterol/Ipratropium (Duoneb 3 Mg/0.5 Mg (3 Ml) Ud) 3 ml INH RQ6 [facility] Last Admin: 04/18/17 13:52 Dose: Not Given Anastrozole (Arimidex 1 Mg Tab) 1 mg PO DAILY [facility] Last Admin: 04/18/17 10:50 Dose: 1 mg Enoxaparin Sodium (Lovenox) 40 mg SC DAILY [facility] Last Admin: 04/18/17 10:50 Dose: 40 mg Gabapentin (Neurontin) 600 mg PO TID [facility] Last Admin: 04/18/17 18:33 Dose: 600 mg Cefepime HCl 1 gm/ Dextrose 50 mls @ 100 mls/hr IVPB Q8H [facility] Last Admin: 04/18/17 14:01 Dose: 100 mls/hr Azithromycin 500 mg/ Sodium (Chloride) 250 mls @ 250 mls/hr IVPB Q24H [facility] Last Admin: 04/18/17 15:08 Dose: 250 mls/hr Lidocaine (Lidoderm) 1 ea TD DAILY [facility] Last Admin: 04/18/17 10:50 Dose: 1 ea Loperamide HCl (Imodium) 2 mg PO Q4H PRN PRN Reason: Diarrhea Last Admin: 04/18/17 14:00 Dose: 2 mg Methimazole (Tapazole) 5 mg PO DAILY [facility] Last Admin: 04/18/17 10:50 Dose: 5 mg Methylprednisolone (Solu-Medrol) 40 mg IV Q12 [facility] Last Admin: 04/18/17 10:50 Dose: 40 mg Metoprolol Tartrate (Lopressor) 25 mg PO BID [facility] Last Admin: 04/18/17 18:34 Dose: Not Given Nitroglycerin (Nitrostat Sl Tab) 0.4 mg SL Q5M PRN PRN Reason: Chest Pain Last Admin: 04/18/17 18:33 Dose: 0.4 mg Pantoprazole Sodium (Protonix Ec Tab) 40 mg PO 0600 [facility] Last Admin: 04/18/17 06:49 Dose: 40 mg Saccharomyces Boulardii (Florastor) 250 mg PO DAILY [facility] Last Admin: 04/18/17 10:50 Dose: 250 mg Zolpidem Tartrate (Ambien) 5 mg PO HS PRN PRN Reason: Insomnia Physical Exam - Head Exam Head Exam: ATRAUMATIC, NORMOCEPHALIC - Eye Exam Eye Exam: Normal appearance - ENT Exam ENT Exam: Mucous Membranes Moist - Neck Exam Neck exam: Positive for: Normal Inspection - Respiratory Exam Respiratory Exam: Decreased Breath Sounds, Rhonchi - Cardiovascular Exam Cardiovascular Exam: REGULAR RHYTHM Results - Vital Signs Recent Vital Signs: Last Vital Signs Temp 98.1 F 04/18/17 15:00 Pulse 82 04/18/17 16:30 Resp 20 04/18/17 16:30 BP 123/64 04/18/17 18:34 Pulse Ox 95 04/18/17 16:30 - Labs Result Diagrams: 04/18/17 06:15 04/18/17 06:15 Labs: Laboratory Results - last 24 hr 04/18/17 04/18/17 06:15 06:15 WBC 11.2 H RBC 4.05 Hgb 11.6 Hct 35.6 MCV 87.8 MCH 28.7 MCHC 32.7 L RDW 17.4 H Plt Count 313 MPV 7.3 Neut % (Auto) 93.3 H Lymph % (Auto) 3.2 L [place] % (Auto) 3.4 Eos % (Auto) 0.0 Baso % (Auto) 0.1 Neut # 10.4 H Lymph # 0.4 L [place] # 0.4 Eos # 0.0 Baso # 0.0 Neutrophils % (Manual) 95 H Lymphocytes % (Manual) 1 L Monocytes % (Manual) 4 Platelet Estimate Normal Anisocytosis (manual) Slight Sodium 141 Potassium 3.5 L Chloride 104 Carbon Dioxide 26 Anion Gap 15 BUN 21 H Creatinine 0.6 L Est GFR ( Amer) > 60 Est GFR (Non-Af Amer) > 60 Random Glucose 131 H Calcium 7.8 L Assessment & Plan (1) Acute bronchitis with chronic obstructive pulmonary disease (COPD) Status: Acute Priority: High Comment: Continue IV steroids, nebulizer treatment. Follow-up ABG. BiPAP as necessary. Continue antibiotics (2) Acute respiratory failure with hypoxia Status: Acute
--- NOTE | 2017-04-19 01:24 | CP.PCM.PN ---
Subjective - Date & Time of Evaluation Date of Evaluation: 04/18/17 Time of Evaluation: 20:36 - Subjective Subjective: COUGH AND SHE IS MORE CONGESTED, NO NAUSEA, CHEST PAIN, ON AND OFF Objective - Vital Signs/Intake and Output Vital Signs (last 24 hours): Temp Pulse Resp BP Pulse Ox 98.4 F 105 H 20 128/77 96 04/19/17 00:00 04/19/17 00:00 04/19/17 00:00 04/19/17 00:00 04/19/17 00:00 Intake and Output: 04/18/17 04/19/17 18:59 06:59 Intake Total 400 350 Balance 400 350 - Medications Medications: Current Medications Albuterol/Ipratropium (Duoneb 3 Mg/0.5 Mg (3 Ml) Ud) 3 ml INH RQ6 [facility] Last Admin: 04/18/17 19:51 Dose: 3 ml Anastrozole (Arimidex 1 Mg Tab) 1 mg PO DAILY [facility] Last Admin: 04/18/17 10:50 Dose: 1 mg Enoxaparin Sodium (Lovenox) 40 mg SC DAILY [facility] Last Admin: 04/18/17 10:50 Dose: 40 mg Gabapentin (Neurontin) 600 mg PO TID [facility] Last Admin: 04/18/17 18:33 Dose: 600 mg Cefepime HCl 1 gm/ Dextrose 50 mls @ 100 mls/hr IVPB Q8H [facility] Last Admin: 04/18/17 21:51 Dose: 100 mls/hr Azithromycin 500 mg/ Sodium (Chloride) 250 mls @ 250 mls/hr IVPB Q24H [facility] Last Admin: 04/18/17 15:08 Dose: 250 mls/hr Lidocaine (Lidoderm) 1 ea TD DAILY [facility] Last Admin: 04/18/17 10:50 Dose: 1 ea Loperamide HCl (Imodium) 2 mg PO Q4H PRN PRN Reason: Diarrhea Last Admin: 04/18/17 20:15 Dose: 2 mg Methimazole (Tapazole) 5 mg PO DAILY [facility] Last Admin: 04/18/17 10:50 Dose: 5 mg Methylprednisolone (Solu-Medrol) 40 mg IV Q12 [facility] Last Admin: 04/18/17 21:51 Dose: 40 mg Metoprolol Tartrate (Lopressor) 25 mg PO BID [facility] Last Admin: 04/18/17 18:34 Dose: Not Given Nitroglycerin (Nitrostat Sl Tab) 0.4 mg SL Q5M PRN PRN Reason: Chest Pain Last Admin: 04/18/17 18:33 Dose: 0.4 mg Pantoprazole Sodium (Protonix Ec Tab) 40 mg PO 0600 [facility] Last Admin: 04/18/17 06:49 Dose: 40 mg Saccharomyces Boulardii (Florastor) 250 mg PO DAILY [facility] Last Admin: 04/18/17 10:50 Dose: 250 mg Zolpidem Tartrate (Ambien) 5 mg PO HS PRN PRN Reason: Insomnia Last Admin: 04/18/17 21:58 Dose: 5 mg - Labs Labs: 04/18/17 06:15 04/18/17 06:15 - Constitutional Appears: Non-toxic, No Acute Distress, Chronically Ill - Head Exam Head Exam: ATRAUMATIC, NORMAL INSPECTION, NORMOCEPHALIC - Eye Exam Eye Exam: EOMI, Normal appearance, PERRL Pupil Exam: NORMAL ACCOMODATION - ENT Exam ENT Exam: Mucous Membranes Moist, Normal Exam, Normal Oropharynx, TM's Normal Bilaterally - Neck Exam Neck Exam: Normal Inspection - Respiratory Exam Respiratory Exam: Prolonged Expiratory Phase, Rhonchi, Wheezes, NORMAL BREATHING PATTERN - Cardiovascular Exam Cardiovascular Exam: REGULAR RHYTHM, +S1, +S2 - Rectal Exam Rectal Exam: NORMAL INSPECTION - Extremities Exam Extremities Exam: Full ROM, Normal Capillary Refill, Normal Inspection - Neurological Exam Neurological Exam: Alert, Awake, CN II-XII Intact, Normal Gait, Oriented x3 Neuro motor strength exam: Left Upper Extremity: 5, Right Upper Extremity: 5, Left Lower Extremity: 5, Right Lower Extremity: 5 - Psychiatric Exam Psychiatric exam: Flat Affect, Normal Mood Assessment and Plan (1) Acute respiratory failure with hypercapnia Assessment & Plan: ON SOLUMEDROL, SEEN BY PULMONARY Status: Resolved (2) Acute tracheobronchitis Status: Acute (3) Hypothyroidism Status: Chronic (4) HTN (hypertension) Status: Chronic
[2017-04-19] MEDS: Albuterol-Ipratrop 3 mg / 0.5 (3 ml) UD INH SCH ×4 (01:50→20:15)
[2017-04-19] MEDS: Pantoprazole 40 mg EC Tab PO SCH (05:27)
[2017-04-19] MEDS: methIMAzole 5 MG TAB PO SCH (09:17)
[2017-04-19] MEDS: MethylPREDNISolone 40 mg Vial IV SCH (09:19)
[2017-04-19] MEDS: Lidocaine 5% Patch TD SCH (09:19)
[2017-04-19] MEDS: Saccharomyces Boulardi 250 mg Cap PO SCH (09:19)
[2017-04-19] MEDS: Enoxaparin 40 mg Syringe SC SCH (09:20)
[2017-04-19] MEDS: Azithromycin 500 MG in Sodium Chloride 0.9% 250 ML IVPB SCH (13:59)
[2017-04-19] MEDS ORDERED: Promethazine 6.25 MG/5 ML CUP PO PRN (14:09)
--- NOTE | 2017-04-19 19:35 | CP.PCM.PN ---
Subjective - Date & Time of Evaluation Date of Evaluation: 04/19/17 Time of Evaluation: 15:00 - Subjective Subjective: the patient seen and examined. Still complaining of cough and dyspnea on minimal exertion Denies fever chills, denies chest pain Objective - Vital Signs/Intake and Output Vital Signs (last 24 hours): Temp Pulse Resp BP Pulse Ox 98.3 F 95 H 20 104/62 96 04/19/17 15:00 04/19/17 15:00 04/19/17 15:00 04/19/17 17:13 04/19/17 15:00 Intake and Output: 04/19/17 04/20/17 18:59 06:59 Intake Total 710 Balance 710 - Medications Medications: Current Medications Albuterol/Ipratropium (Duoneb 3 Mg/0.5 Mg (3 Ml) Ud) 3 ml INH RQ6 [facility] Last Admin: 04/19/17 13:02 Dose: 3 ml Anastrozole (Arimidex 1 Mg Tab) 1 mg PO DAILY [facility] Last Admin: 04/19/17 09:30 Dose: 1 mg Enoxaparin Sodium (Lovenox) 40 mg SC DAILY [facility] Last Admin: 04/19/17 09:20 Dose: 40 mg Gabapentin (Neurontin) 600 mg PO TID [facility] Last Admin: 04/19/17 17:12 Dose: 600 mg Cefepime HCl 1 gm/ Dextrose 50 mls @ 100 mls/hr IVPB Q8H [facility] Last Admin: 04/19/17 13:58 Dose: 100 mls/hr Isosorbide Mononitrate (Imdur) 30 mg PO DAILY [facility] Last Admin: 04/19/17 17:12 Dose: 30 mg Lidocaine (Lidoderm) 1 ea TD DAILY [facility] Last Admin: 04/19/17 09:19 Dose: 1 ea Loperamide HCl (Imodium) 2 mg PO Q4H PRN PRN Reason: Diarrhea Last Admin: 04/19/17 14:29 Dose: 2 mg Methimazole (Tapazole) 5 mg PO DAILY [facility] Last Admin: 04/19/17 09:17 Dose: 5 mg Methylprednisolone (Solu-Medrol) 40 mg IV DAILY [facility] Metoprolol Tartrate (Lopressor) 25 mg PO BID [facility] Last Admin: 04/19/17 17:13 Dose: Not Given Nitroglycerin (Nitrostat Sl Tab) 0.4 mg SL Q5M PRN PRN Reason: Chest Pain Last Admin: 04/18/17 18:33 Dose: 0.4 mg Pantoprazole Sodium (Protonix Ec Tab) 40 mg PO 0600 [facility] Last Admin: 04/19/17 05:27 Dose: 40 mg Promethazine HCl (Phenergan Syrup) 6.25 mg PO TID PRN PRN Reason: Cough Last Admin: 04/19/17 14:29 Dose: 6.25 mg Saccharomyces Boulardii (Florastor) 250 mg PO DAILY [facility] Last Admin: 04/19/17 09:19 Dose: 250 mg Zolpidem Tartrate (Ambien) 5 mg PO HS PRN PRN Reason: Insomnia Last Admin: 04/18/17 21:58 Dose: 5 mg - Labs Labs: 04/18/17 06:15 04/18/17 06:15 - Head Exam Head Exam: ATRAUMATIC, NORMOCEPHALIC - Eye Exam Eye Exam: Normal appearance - ENT Exam ENT Exam: Mucous Membranes Moist - Neck Exam Neck Exam: Normal Inspection - Respiratory Exam Respiratory Exam: Decreased Breath Sounds - Cardiovascular Exam Cardiovascular Exam: REGULAR RHYTHM Assessment and Plan (1) Acute bronchitis with chronic obstructive pulmonary disease (COPD) Assessment & Plan: continue nebulizer treatment, steroids and antibiotics Status: Acute (2) Acute respiratory failure with hypoxia Status: Acute
--- NOTE | 2017-04-19 23:23 | CP.PCM.PN ---
Subjective - Date & Time of Evaluation Date of Evaluation: 04/19/17 Time of Evaluation: 11:10 - Subjective Subjective: CHEST PAIN, COUGH AND WHEEZING, NO NAUSEA, NO VOMITING, NO FEVER Objective - Vital Signs/Intake and Output Vital Signs (last 24 hours): Temp Pulse Resp BP Pulse Ox 98.3 F 95 H 20 104/62 96 04/19/17 15:00 04/19/17 15:00 04/19/17 15:00 04/19/17 17:13 04/19/17 15:00 Intake and Output: 04/19/17 04/20/17 18:59 06:59 Intake Total 710 305 Balance 710 305 - Medications Medications: Current Medications Albuterol/Ipratropium (Duoneb 3 Mg/0.5 Mg (3 Ml) Ud) 3 ml INH RQ6 [facility] Last Admin: 04/19/17 20:15 Dose: 3 ml Anastrozole (Arimidex 1 Mg Tab) 1 mg PO DAILY [facility] Last Admin: 04/19/17 09:30 Dose: 1 mg Enoxaparin Sodium (Lovenox) 40 mg SC DAILY [facility] Last Admin: 04/19/17 09:20 Dose: 40 mg Gabapentin (Neurontin) 600 mg PO TID [facility] Last Admin: 04/19/17 17:12 Dose: 600 mg Cefepime HCl 1 gm/ Dextrose 50 mls @ 100 mls/hr IVPB Q8H [facility] Last Admin: 04/19/17 21:41 Dose: 100 mls/hr Isosorbide Mononitrate (Imdur) 30 mg PO DAILY [facility] Last Admin: 04/19/17 17:12 Dose: 30 mg Lidocaine (Lidoderm) 1 ea TD DAILY [facility] Last Admin: 04/19/17 09:19 Dose: 1 ea Loperamide HCl (Imodium) 2 mg PO Q4H PRN PRN Reason: Diarrhea Last Admin: 04/19/17 14:29 Dose: 2 mg Methimazole (Tapazole) 5 mg PO DAILY [facility] Last Admin: 04/19/17 09:17 Dose: 5 mg Methylprednisolone (Solu-Medrol) 40 mg IV DAILY [facility] Metoprolol Tartrate (Lopressor) 25 mg PO BID [facility] Last Admin: 04/19/17 17:13 Dose: Not Given Nitroglycerin (Nitrostat Sl Tab) 0.4 mg SL Q5M PRN PRN Reason: Chest Pain Last Admin: 04/18/17 18:33 Dose: 0.4 mg Pantoprazole Sodium (Protonix Ec Tab) 40 mg PO 0600 [facility] Last Admin: 04/19/17 05:27 Dose: 40 mg Promethazine HCl (Phenergan Syrup) 6.25 mg PO TID PRN PRN Reason: Cough Last Admin: 04/19/17 14:29 Dose: 6.25 mg Saccharomyces Boulardii (Florastor) 250 mg PO DAILY [facility] Last Admin: 04/19/17 09:19 Dose: 250 mg Zolpidem Tartrate (Ambien) 5 mg PO HS PRN PRN Reason: Insomnia Last Admin: 04/19/17 21:42 Dose: 5 mg - Labs Labs: 04/18/17 06:15 04/18/17 06:15 - Constitutional Appears: Non-toxic, No Acute Distress - Head Exam Head Exam: ATRAUMATIC, NORMAL INSPECTION, NORMOCEPHALIC - Eye Exam Eye Exam: EOMI, Normal appearance, PERRL Pupil Exam: NORMAL ACCOMODATION - ENT Exam ENT Exam: Mucous Membranes Moist, Normal Exam, Normal Oropharynx, TM's Normal Bilaterally - Neck Exam Neck Exam: Normal Inspection - Respiratory Exam Respiratory Exam: Prolonged Expiratory Phase, Rhonchi - Cardiovascular Exam Cardiovascular Exam: REGULAR RHYTHM, +S1, +S2 - GI/Abdominal Exam GI & Abdominal Exam: Soft, Normal Bowel Sounds - Extremities Exam Extremities Exam: Normal Capillary Refill - Neurological Exam Neurological Exam: Alert, Awake, CN II-XII Intact, Normal Gait, Oriented x3 Neuro motor strength exam: Left Upper Extremity: 5, Right Upper Extremity: 5, Left Lower Extremity: 5, Right Lower Extremity: 5 Assessment and Plan (1) Acute respiratory failure with hypercapnia Status: Resolved (2) Acute tracheobronchitis Status: Acute (3) Hypothyroidism Status: Chronic (4) HTN (hypertension) Status: Chronic
[2017-04-20] MEDS: Albuterol-Ipratrop 3 mg / 0.5 (3 ml) UD INH SCH ×4 (01:37→20:41)
[2017-04-20] MEDS: Pantoprazole 40 mg EC Tab PO SCH (06:33)
[2017-04-20 07:08] LABS: HEMATOCRIT 34.3 % (34.0-47.0); MEAN CELL VOLUME 87.5 fL (81.0-99.0); MEAN CORPUSCULAR HEMOGLOBIN 28.7 pg (27.0-31.0); MEAN CORPUSCULAR HGB CONC 32.8 g/dL (33.0-37.0); MEAN PLATELET VOLUME 7.4 fL (7.2-11.7); RED CELL DISTRIBUTION WIDTH 17.2 % (11.5-14.5); WHITE BLOOD COUNT 10.7 K/uL (4.8-10.8)
[2017-04-20 07:21] LABS: BLOOD UREA NITROGEN 29 mg/dL (7-17); CALCIUM 8.5 mg/dl (8.6-10.4); CARBON DIOXIDE 29 mmol/L (22-30); CHLORIDE 101 mmol/L (98-107); GFR AFRICAN-AMERICAN > 60; GLUCOSE,RANDOM 75 mg/dL (65-105); POTASSIUM 4.2 mmol/L (3.6-5.2); SODIUM 137 mmol/L (132-148)
[2017-04-20] MEDS: MethylPREDNISolone 40 mg Vial IV SCH (11:46)
[2017-04-20] MEDS: Enoxaparin 40 mg Syringe SC SCH (11:48)
[2017-04-20] MEDS: Lidocaine 5% Patch TD SCH (11:48)
[2017-04-20] MEDS: Saccharomyces Boulardi 250 mg Cap PO SCH (11:55)
[2017-04-20] MEDS: methIMAzole 5 MG TAB PO SCH (13:51)
[2017-04-20] MEDS: Naproxen 275 mg Tab PO SCH (17:40)
--- NOTE | 2017-04-20 22:28 | CP.PCM.PN ---
Subjective - Date & Time of Evaluation Date of Evaluation: 04/20/17 Time of Evaluation: 11:16 - Subjective Subjective: C/O HEADACHE, LESS SOB, LESS COUGH, NO CHEST PAIN TODAY, NO FEVER, OFF ZITHROMAX Objective - Vital Signs/Intake and Output Vital Signs (last 24 hours): Temp Pulse Resp BP Pulse Ox 99.2 F 80 20 99/59 L 95 04/20/17 16:00 04/20/17 16:00 04/20/17 16:00 04/20/17 17:41 04/20/17 16:00 Intake and Output: 04/20/17 04/21/17 18:59 06:59 Intake Total 600 Balance 600 - Medications Medications: Current Medications Albuterol/Ipratropium (Duoneb 3 Mg/0.5 Mg (3 Ml) Ud) 3 ml INH RQ6 [facility] Last Admin: 04/20/17 20:41 Dose: 3 ml Anastrozole (Arimidex 1 Mg Tab) 1 mg PO DAILY [facility] Last Admin: 04/20/17 11:54 Dose: 1 mg Gabapentin (Neurontin) 600 mg PO TID [facility] Last Admin: 04/20/17 17:43 Dose: 600 mg Cefepime HCl 1 gm/ Dextrose 50 mls @ 100 mls/hr IVPB Q8H [facility] Last Admin: 04/20/17 22:06 Dose: 100 mls/hr Lidocaine (Lidoderm) 1 ea TD DAILY [facility] Last Admin: 04/20/17 11:48 Dose: 1 ea Loperamide HCl (Imodium) 2 mg PO Q4H PRN PRN Reason: Diarrhea Last Admin: 04/20/17 11:47 Dose: 2 mg Methimazole (Tapazole) 5 mg PO DAILY [facility] Last Admin: 04/20/17 13:51 Dose: 5 mg Methylprednisolone (Solu-Medrol) 40 mg IV DAILY [facility] Last Admin: 04/20/17 11:46 Dose: 40 mg Metoprolol Tartrate (Lopressor) 25 mg PO BID [facility] Last Admin: 04/20/17 17:41 Dose: Not Given Naproxen (Anaprox) 275 mg PO BID [facility] Last Admin: 04/20/17 17:40 Dose: 275 mg Nitroglycerin (Nitrostat Sl Tab) 0.4 mg SL Q5M PRN PRN Reason: Chest Pain Last Admin: 04/18/17 18:33 Dose: 0.4 mg Pantoprazole Sodium (Protonix Ec Tab) 40 mg PO 0600 [facility] Last Admin: 04/20/17 06:33 Dose: 40 mg Promethazine HCl (Phenergan Syrup) 6.25 mg PO TID PRN PRN Reason: Cough Last Admin: 04/19/17 14:29 Dose: 6.25 mg Saccharomyces Boulardii (Florastor) 250 mg PO DAILY [facility] Last Admin: 04/20/17 11:55 Dose: 250 mg Zolpidem Tartrate (Ambien) 5 mg PO HS PRN PRN Reason: Insomnia Last Admin: 04/20/17 22:06 Dose: 5 mg - Labs Labs: 04/20/17 07:01 04/20/17 07:01 - Constitutional Appears: Non-toxic, No Acute Distress, Chronically Ill - Head Exam Head Exam: ATRAUMATIC, NORMAL INSPECTION, NORMOCEPHALIC - Eye Exam Eye Exam: EOMI, Normal appearance, PERRL Pupil Exam: NORMAL ACCOMODATION - ENT Exam ENT Exam: Mucous Membranes Moist, Normal Exam, Normal Oropharynx, TM's Normal Bilaterally - Neck Exam Neck Exam: Normal Inspection - Respiratory Exam Respiratory Exam: Decreased Breath Sounds, Rhonchi - Cardiovascular Exam Cardiovascular Exam: Tachycardia, REGULAR RHYTHM, +S1, +S2 - GI/Abdominal Exam GI & Abdominal Exam: Soft, Normal Bowel Sounds - Rectal Exam Rectal Exam: NORMAL INSPECTION - Extremities Exam Extremities Exam: Normal Capillary Refill, Normal Inspection - Neurological Exam Neurological Exam: Alert, Awake, CN II-XII Intact, Normal Gait, Oriented x3 Neuro motor strength exam: Left Upper Extremity: 5, Right Upper Extremity: 5, Left Lower Extremity: 5, Right Lower Extremity: 5 - Psychiatric Exam Psychiatric exam: Normal Mood - Skin Skin Exam: Intact Assessment and Plan (1) Acute respiratory failure with hypercapnia Assessment & Plan: OFF MV, AND STEROIDS ARE BEING TAPERED Status: Resolved (2) Acute tracheobronchitis Status: Acute (3) Hypothyroidism Status: Chronic (4) HTN (hypertension) Status: Chronic
[2017-04-21] MEDS: Albuterol-Ipratrop 3 mg / 0.5 (3 ml) UD INH SCH ×5 (01:35→20:24)
[2017-04-21] MEDS: Pantoprazole 40 mg EC Tab PO SCH (05:37)
[2017-04-21] MEDS: Naproxen 275 mg Tab PO SCH ×2 (10:06→18:46)
[2017-04-21] MEDS: Saccharomyces Boulardi 250 mg Cap PO SCH (10:10)
[2017-04-21] MEDS: Lidocaine 5% Patch TD SCH (10:10)
[2017-04-21] MEDS: MethylPREDNISolone 40 mg Vial IV SCH (10:11)
[2017-04-21] MEDS: methIMAzole 5 MG TAB PO SCH (10:11)
--- NOTE | 2017-04-21 11:41 | CP.PCM.PN ---
Subjective - Date & Time of Evaluation Date of Evaluation: 04/21/17 Time of Evaluation: 07:00 - Subjective Subjective: patient seen and examined. Complaining of dry cough and unable to bring up phlegm Breathing better Afebrile Denies any chest pain Objective - Vital Signs/Intake and Output Vital Signs (last 24 hours): Temp Pulse Resp BP Pulse Ox 98.3 F 86 20 118/67 96 04/21/17 08:00 04/21/17 08:00 04/21/17 08:00 04/21/17 10:10 04/21/17 08:00 Intake and Output: 04/21/17 04/21/17 06:59 18:59 Intake Total 400 Balance 400 - Medications Medications: Current Medications Albuterol/Ipratropium (Duoneb 3 Mg/0.5 Mg (3 Ml) Ud) 3 ml INH RQ6 [facility] Last Admin: 04/21/17 08:00 Dose: 3 ml Anastrozole (Arimidex 1 Mg Tab) 1 mg PO DAILY [facility] Last Admin: 04/21/17 10:09 Dose: 1 mg Gabapentin (Neurontin) 600 mg PO TID [facility] Last Admin: 04/21/17 10:10 Dose: 600 mg Cefepime HCl 1 gm/ Dextrose 50 mls @ 100 mls/hr IVPB Q8H [facility] Last Admin: 04/21/17 05:37 Dose: 100 mls/hr Lidocaine (Lidoderm) 1 ea TD DAILY [facility] Last Admin: 04/21/17 10:10 Dose: 1 ea Loperamide HCl (Imodium) 2 mg PO Q4H PRN PRN Reason: Diarrhea Last Admin: 04/20/17 11:47 Dose: 2 mg Methimazole (Tapazole) 5 mg PO DAILY [facility] Last Admin: 04/21/17 10:11 Dose: 5 mg Methylprednisolone (Solu-Medrol) 40 mg IV DAILY [facility] Last Admin: 04/21/17 10:11 Dose: 40 mg Metoprolol Tartrate (Lopressor) 25 mg PO BID [facility] Last Admin: 04/21/17 10:10 Dose: 25 mg Naproxen (Anaprox) 275 mg PO BID [facility] Last Admin: 04/21/17 10:06 Dose: 275 mg Nitroglycerin (Nitrostat Sl Tab) 0.4 mg SL Q5M PRN PRN Reason: Chest Pain Last Admin: 04/18/17 18:33 Dose: 0.4 mg Pantoprazole Sodium (Protonix Ec Tab) 40 mg PO 0600 [facility] Last Admin: 04/21/17 05:37 Dose: 40 mg Promethazine HCl (Phenergan Syrup) 6.25 mg PO TID PRN PRN Reason: Cough Last Admin: 04/19/17 14:29 Dose: 6.25 mg Saccharomyces Boulardii (Florastor) 250 mg PO DAILY [facility] Last Admin: 04/21/17 10:10 Dose: 250 mg Zolpidem Tartrate (Ambien) 5 mg PO HS PRN PRN Reason: Insomnia Last Admin: 04/20/17 22:06 Dose: 5 mg - Labs Labs: 04/20/17 07:01 04/20/17 07:01 - Head Exam Head Exam: ATRAUMATIC, NORMOCEPHALIC - Eye Exam Eye Exam: Normal appearance - ENT Exam ENT Exam: Mucous Membranes Moist - Neck Exam Neck Exam: Normal Inspection - Respiratory Exam Respiratory Exam: Decreased Breath Sounds Assessment and Plan (1) Acute bronchitis with chronic obstructive pulmonary disease (COPD) Assessment & Plan: switched to p.o. prednisone Continue nebulizer treatment Status: Acute (2) Acute respiratory failure with hypoxia Status: Acute
[2017-04-21] MEDS: guaiFENesin 600 mg ER Tab PO SCH ×2 (12:00→18:43)
[2017-04-21] MEDS: Cefepime 1 GM in Sodium Chloride 0.9% 100 ML IVPB SCH ×2 (13:41→22:37)
--- NOTE | 2017-04-21 14:20 | PCM.RRTMUL ---
SECTION HAND HELPER Nurses Assessment - Situation SECTION HAND HELPER Responder Arrival Time:: 13:57 [facility] Reason for Call: Chest Pain SECTION HAND HELPER Called By: RN - Respiratory Oxygen Delivery Method:: Venturi Mask Received Nebulizer Treatments:: Yes - Ventilator Settings SAO2 %:: 97 - Medication Medications Administered During SECTION HAND HELPER :: ASA, NitroSL - Diagnostic Test Ordered EKG:: Yes Chest X-Ray:: Yes - Stat Labs Ordered SECTION HAND HELPER Stat Labs Ordered:: TROPONIN, ABG CPR started during SECTION HAND HELPER?: No - Vital Signs Blood Pressure:: 114/74 Pulse Rate:: 83 Temperature:: 98 F (axillary) Oxygen Saturation:: 97 - Fatou Coma Scale Coma Scale Eye Opening:: Spontaneous Coma Scale Motor:: Obeys Commands Movement Coma Scale Verbal:: Oriented Coma Scale Total:: 15 - Time SECTION HAND HELPER Ended Time SECTION HAND HELPER Ended:: 14:20 - Recommendations 5) SECTION HAND HELPER Level of Care Recommendations: Transfer to Telemetry 6) Notifications: Attending Physician, Consultations I.Reason for SECTION HAND HELPER - A) Acute Change in Patient: (Select all that apply): Chest Pain - A) Initial Vital Signs: Blood Pressure: 114/74 Pulse Rate: 83 Temperature: 98 F (axillary) O2 Sat by Pulse Oximetry: 97 - B) Neurological Status (Select all that apply): Alert - C) Respiratory Oxygen Delivery Method: Venturi Mask @% - Constitutional Appears: Non-toxic, No Acute Distress, Chronically Ill - Head Head Exam: NORMOCEPHALIC - Eyes Eye Exam: Normal appearance - Respiratory Exam Respiratory Exam: Rhonchi, NORMAL BREATHING PATTERN - Cardiovascular Exam Cardiovascular Exam: REGULAR RHYTHM, +S1, +S2. absent: Gallop, Rubs - GI/Abdominal Exam GI & Abdominal Exam: Soft, Normal Bowel Sounds - Neurological Exam Neurological Exam: Normal Gait Plan - B. Assessment of Findings&Treatment Plan SECTION HAND HELPER called for chest pressure sensation. History of breast CA, COPD and CHF. Pt noted having similar sensations in the past but usually resolves with breathing treatment and Nitro SL. Pt was about to receive treatment when SECTION HAND HELPER was called. Attending Dr. Araujo present. Nitro SL and ASA were given stat. Patient symptoms improved after receiving medications. ABG, EKG and CXR ordered as well. Dr. Malloy contacted. Will consult Dr. Gonzalez as per Dr. Aarujo. Pt will be transferred to telemetry as well.
--- NOTE | 2017-04-21 14:54 | RAD ---
HISTORY: medical practice manager COMPARISON: Comparison made with prior chest radiograph 04/15/2027 FINDINGS: LUNGS: Persistent right lower lobe opacification which could represent some combination of atelectasis and infiltrate. Small right-sided effusion. Questionable tiny residual left effusion. PLEURA: As above. No apparent apparent. CARDIOVASCULAR: Heart remains mildly enlarged OSSEOUS STRUCTURES: ACDF plate overlying the lower cervical spine unchanged VISUALIZED UPPER ABDOMEN: Normal. OTHER FINDINGS: Re- demonstrated are metallic surgical clips right axillary region with absent of the right humeral head the proximal right humerus. Clinic correlation with surgical history. IMPRESSION: Persistent right lower lobe opacification which could represent some combination of atelectasis and infiltrate. Small right-sided effusion. Questionable tiny residual left effusion.
[2017-04-21 15:50] LABS: ABG ALLEN TEST A; ARTERIAL BLOOD HGB O2 SAT 92.9 % (95.0-98.0); CARBOXYHEMOGLOBIN 2.7 % (0.5-1.5); DRAW SITE LR; HHB 3.1 % (0.0-5.0); METHEMOGLOBIN 1.2 % (0.0-3.0)
[2017-04-21] MEDS ORDERED: Albuterol-Ipratrop 3 mg / 0.5 (3 ml) UD INH PRN (17:49)
--- NOTE | 2017-04-21 18:58 | CP.PCM.CON ---
History of Present Illness - History of Present Illness History of Present Illness: I was asked to evaluate patient by Dr. Malloy. Patient is a 66 year old female with PMH pulmonary HTN, COPD, mild LV systolic dysfunction who was intially admitted for respiratory distress. The patient was intubated and admitted to ICU. She was eventually extubated and transferred to the medical floor. The patient developed chest pressure at rest , and rapid response was called. The chest pain was pleuritic with nature, and not assocaited with dyspnea. Of note patient had a cardiac cath one year ago which was negative for CAD. Review of Systems - Constitutional Constitutional: absent: As Per HPI, Anorexia, Chills, Daytime Sleepiness, Excessive Sweating, Fatigue, Fever, Frequent Falls, Headache, Increased Appetite , Lethargy, Malaise, Night Sweats, Snoring, Sleep Apnea, Weight Gain, Weight Loss, Weakness, Other - EENT Eyes: absent: As Per HPI, Blind Spots, Blurred Vision, Change in Vision, Decreased Night Vision, Diplopia, Discharge, Dry Eye, Exophthalmos, Floaters, Irritation, Itchy Eyes, Loss of Peripheral Vision, Pain, Photophobia, Requires Corrective Lenses, Sees Flashes, Spots in Vision, Tunnel Vision, Other Visual Disturbances, Loss of Vision, Other Ears: absent: As Per HPI, Decreased Hearing, Ear Discharge, Ear Pain, Tinnitus, Abnormal Hearing, Disequilibrium, Dizziness, Other Nose/Mouth/Throat: absent: As Per HPI, Epistaxis, Nasal Congestion, Nasal Discharge, Nasal Obstruction, Nasal Trauma, Nose Pain, Post Nasal Drip, Sinus Pain, Sinus Pressure, Bleeding Gums, Change in Voice, Dental Pain, Dry Mouth, Dysphagia, Halitosis, Hoarsness, Lip Swelling, Mouth Lesions, Mouth Pain, Odynophagia, Sore Throat, Throat Swelling, Tongue Swelling, Facial Pain, Neck Pain, Neck Mass, Other - Cardiovascular Cardiovascular: Chest Pain - Respiratory Respiratory: Dyspnea - Gastrointestinal Gastrointestinal: absent: As Per HPI, Abdominal Pain, Belching, Bloating, Change in Bowel Habits, Change in Stool Character, Coffee Ground Emesis, Constipation, Cramping, Diarrhea, Dyspepsia, Dysphagia, Early Satiety, Excessive Flatus, Fecal Incontinence, Heartburn, Hematemesis, Hematochezia, Loose Stools, Melena, Nausea, Odynophagia, Temesmus, Vomiting, Other - Genitourinary Genitourinary: absent: As Per HPI, Change in Urinary Stream, Difficulty Urinating, Dysuria, Flank Pain, Hematuria, Pyuria, Nocturia, Urinary Incontinence, Urinary Frequency, Urinary Hesitance, Urinary Urgency, Voiding Freq/Small Amts, Freq UTI, Hx Renal/Bladder Calculi, Hx /Renal Surgery, Bladder Distension, Other - Musculoskeletal Musculoskeletal: absent: As Per HPI, Abnormal Gait, Arthralgias, Atrophy, Back Pain, Deformity, Joint Swelling, Limited Range of Motion, Loss of Height, Muscle Cramps, Muscle Weakness, Myalgias, Neck Pain, Numbness, Radiating Pain into Limb, Stiffness, Tingling, Other - Integumentary Integumentary: absent: As Per HPI, Acne, Alopecia, Bleeding Lesions, Change in Hair, Change in Nails, Change in Pigmentation, Changing Lesions, Dry Skin, Erythema, Furuncle, Hirsutism, Lesions, New Lesions, Non-Healing Lesions, Photosensitivity, Pruritus, Rash, Skin Pain, Skin Ulcer, Sores, Striae, Swelling , Unusual Bruising, Wounds, Jaundice, Other - Neurological Neurological: absent: As Per HPI, Abnormal Gait, Abnormal Hearing, Abnormal Movements, Abnormal Speech, Behavioral Changes, Burning Sensations, Confusion, Convulsions, Disequilibrium, Dizziness, Numbness, Focal Weakness, Frequent Falls , Headaches, Lack of Coordination, Loss of Vision, Memory Loss, Paresthesias, Radicular Pain, Restless Legs, Sensory Deficit, Syncope, Tingling, Tremor, Vertigo, Weakness, Other Visual Disturbances, Other - Psychiatric Psychiatric: absent: As Per HPI, Abnormal Sleep Pattern, Anhedonia, Anxiety, Auditory Hallucinations, Behavioral Changes, Change in Appetite, Change in Libido, Confusion, Depression, Difficulty Concentrating, Hallucinations, Homicidal Ideation, Hopelessness, Irritability, Memory Loss, Mood Swings, Panic Attacks, Paranoia, Suicidal Ideation, Visual Hallucinations, Tactile Hallucinations, Other - Endocrine Endocrine: absent: As Per HPI, Change in Body Appearance, Change in Libido, Cold Intolorance, Deepening of Voice, Excessive Sweating, Fatigue, Flushing, Heat Intolorance, Increase in Ring/Shoe/Hat Size, Palpitations, Polydipsia, Polyphagia, Polyuria, Other - Hematologic/Lymphatic Hematologic: absent: As Per HPI, Easy Bleeding, Easy Bruising, Lymphadenopathy, Other Past Patient History - Infectious Disease Hx of Infectious Diseases: None - Tetanus Immunizations Tetanus Immunization: Unknown - Past Medical History & Family History Past Medical History?: Yes - Past Social History Smoking Status: Former Smoker - CARDIAC Hx Congestive Heart Failure: Yes Hx Hypertension: Yes - PULMONARY Hx Chronic Obstructive Pulmonary Disease (COPD): Yes - NEUROLOGICAL Hx Neurological Disorder: Yes Other/Comment: Peripheral neuropathy right lower extremity. 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 - RENAL Hx Chronic Kidney Disease: No - ENDOCRINE/METABOLIC Hx Hypothyroidism: Yes - HEMATOLOGICAL/ONCOLOGICAL Hx Anemia: Yes - INTEGUMENTARY Hx Dermatological Problems: No - MUSCULOSKELETAL/RHEUMATOLOGICAL Hx Arthritis: Yes - GASTROINTESTINAL Hx Gall Bladder Disease: Yes - GENITOURINARY/GYNECOLOGICAL Hx Genitourinary Disorders: No - PSYCHIATRIC Hx Anxiety: Yes Hx Substance Use: No - SURGICAL HISTORY Hx Surgeries: Yes Hx Mastectomy: Yes (right in 1998; left in 2008) Hx Orthopedic Surgery: Yes (2003 rigtht shoulder prosthesis, removal of hardware 2013) Hx Tubal Ligation: Yes Other/Comment: shoulder and humerous replacement with joint space infection and eventual removal of hardware in right shoulder and chronic lymphedema of RUE, groin cyst removal, cervical spinal fusion 2007, lumbar spinal fusion 2007. - ANESTHESIA Hx Anesthesia: Yes Hx Anesthesia Reactions: No Hx Malignant Hyperthermia: No Meds Allergies/Adverse Reactions: Allergies Allergy/AdvReac Type Severity Reaction Status Date / Time paper tape Allergy RASH Uncoded 03/11/17 18:30 - Medications Medications: Current Medications Albuterol/Ipratropium (Duoneb 3 Mg/0.5 Mg (3 Ml) Ud) 3 ml INH RQ6 [facility] Last Admin: 04/21/17 14:00 Dose: 3 ml Albuterol/Ipratropium (Duoneb 3 Mg/0.5 Mg (3 Ml) Ud) 3 ml INH RQ2 PRN PRN Reason: SOB Anastrozole (Arimidex 1 Mg Tab) 1 mg PO DAILY [facility] Last Admin: 04/21/17 10:09 Dose: 1 mg Gabapentin (Neurontin) 600 mg PO TID [facility] Last Admin: 04/21/17 18:43 Dose: 600 mg Guaifenesin (Mucinex La) 600 mg PO BID [facility] Last Admin: 04/21/17 18:43 Dose: 600 mg Cefepime HCl 1 gm/ Sodium (Chloride) 100 mls @ 100 mls/hr IVPB Q8H [facility] Last Admin: 04/21/17 13:41 Dose: 100 mls/hr Lidocaine (Lidoderm) 1 ea TD DAILY [facility] Last Admin: 04/21/17 10:10 Dose: 1 ea Loperamide HCl (Imodium) 2 mg PO Q4H PRN PRN Reason: Diarrhea Last Admin: 04/20/17 11:47 Dose: 2 mg Methimazole (Tapazole) 5 mg PO DAILY [facility] Last Admin: 04/21/17 10:11 Dose: 5 mg Methylprednisolone (Solu-Medrol) 40 mg IV DAILY [facility] Last Admin: 04/21/17 10:11 Dose: 40 mg Metoprolol Tartrate (Lopressor) 25 mg PO BID [facility] Last Admin: 04/21/17 18:43 Dose: 25 mg Naproxen (Anaprox) 275 mg PO BID [facility] Last Admin: 04/21/17 18:46 Dose: Not Given Nitroglycerin (Nitrostat Sl Tab) 0.4 mg SL Q5M PRN PRN Reason: Chest Pain Last Admin: 04/21/17 16:09 Dose: 0.4 mg Pantoprazole Sodium (Protonix Ec Tab) 40 mg PO 0600 [facility] Last Admin: 04/21/17 05:37 Dose: 40 mg Promethazine HCl (Phenergan Syrup) 6.25 mg PO TID PRN PRN Reason: Cough Last Admin: 04/19/17 14:29 Dose: 6.25 mg Saccharomyces Boulardii (Florastor) 250 mg PO DAILY [facility] Last Admin: 04/21/17 10:10 Dose: 250 mg Zolpidem Tartrate (Ambien) 5 mg PO HS PRN PRN Reason: Insomnia Last Admin: 04/20/17 22:06 Dose: 5 mg Physical Exam - Constitutional Appears: Chronically Ill - Head Exam Head Exam: NORMAL INSPECTION - Eye Exam Eye Exam: Normal appearance - ENT Exam ENT Exam: Mucous Membranes Moist - Neck Exam Neck exam: Positive for: Full Rom - Respiratory Exam Respiratory Exam: Decreased Breath Sounds - Cardiovascular Exam Cardiovascular Exam: REGULAR RHYTHM - GI/Abdominal Exam GI & Abdominal Exam: Normal Bowel Sounds - Rectal Exam Rectal Exam: Deferred - Extremities Exam Extremities exam: Negative for: pedal edema - Back Exam Back exam: NORMAL INSPECTION - Neurological Exam Neurological exam: Alert, Oriented x3 - Psychiatric Exam Psychiatric exam: Normal Affect - Skin Skin Exam: Normal Color Results - Vital Signs Recent Vital Signs: Last Vital Signs Temp 98 F 04/21/17 16:32 Pulse 98 H 04/21/17 18:42 Resp 20 04/21/17 16:32 BP 103/69 04/21/17 18:43 Pulse Ox 93 L 04/21/17 16:32 - Labs Result Diagrams: 04/20/17 07:01 04/20/17 07:01 Labs: Laboratory Results - last 24 hr 04/21/17 04/21/17 14:39 15:40 Puncture Site Lr pCO2 46 H pO2 55 L HCO3 32.3 H ABG pH 7.48 H ABG Total CO2 35.7 H ABG O2 Saturation 96.8 ABG Base Excess 9.6 H ABG Hemoglobin 11.4 L ABG Carboxyhemoglobin 2.7 H POC ABG HHb (Measured) 3.1 ABG Methemoglobin 1.2 Markel Test A A-a O2 Difference 87.0 Respiratory Index 1.6 Hgb O2 Saturation 92.9 L Liter Flow 2.0 FiO2 28.0 Total Creatine Kinase < 20 L CK-MB (Mass) 2.98 Troponin I, Quant < 0.0120 - EKG Data EKG Interpreted by: Myself EKG shows normal: Sinus rhythm Assessment & Plan (1) Chest pain Assessment and Plan: unclear etiology, but does not appear cardaic. will monitor on telemetry. check serial cardiac enzymes. If negative beba can d/c from a cardiac standpoint. Status: Acute (2) COPD with exacerbation Assessment and Plan: per pulmonary Status: Acute (3) Chronic CHF (congestive heart failure) Assessment and Plan: mild LV dysfunction. does not appear volume overloaded Status: Acute (4) HTN (hypertension) Assessment and Plan: blood pressure is controlled. Status: Chronic Priority: Medium
--- NOTE | 2017-04-21 23:01 | CP.PCM.PN ---
Subjective - Date & Time of Evaluation Date of Evaluation: 04/21/17 Time of Evaluation: 11:24 - Subjective Subjective: RR WAS CALLED DUE TO CHEST PAIN, IT IS DULL SUBSTERNAL, NO SOB, COUGHS, AND HER C..CATH WAS NEGATIVE LAST YEAR, NOW SHE IS BETTER, NO FEVER Objective - Vital Signs/Intake and Output Vital Signs (last 24 hours): Temp Pulse Resp BP Pulse Ox 98 F 98 H 20 103/69 93 L 04/21/17 16:32 04/21/17 18:42 04/21/17 16:32 04/21/17 18:43 04/21/17 16:32 Intake and Output: 04/21/17 04/22/17 18:59 06:59 Intake Total 530 Balance 530 - Medications Medications: Current Medications Albuterol/Ipratropium (Duoneb 3 Mg/0.5 Mg (3 Ml) Ud) 3 ml INH RQ6 [facility] Last Admin: 04/21/17 20:24 Dose: 3 ml Albuterol/Ipratropium (Duoneb 3 Mg/0.5 Mg (3 Ml) Ud) 3 ml INH RQ2 PRN PRN Reason: SOB Anastrozole (Arimidex 1 Mg Tab) 1 mg PO DAILY [facility] Last Admin: 04/21/17 10:09 Dose: 1 mg Gabapentin (Neurontin) 600 mg PO TID [facility] Last Admin: 04/21/17 18:43 Dose: 600 mg Guaifenesin (Mucinex La) 600 mg PO BID [facility] Last Admin: 04/21/17 18:43 Dose: 600 mg Cefepime HCl 1 gm/ Sodium (Chloride) 100 mls @ 100 mls/hr IVPB Q8H [facility] Last Admin: 04/21/17 22:37 Dose: 100 mls/hr Lidocaine (Lidoderm) 1 ea TD DAILY [facility] Last Admin: 04/21/17 10:10 Dose: 1 ea Loperamide HCl (Imodium) 2 mg PO Q4H PRN PRN Reason: Diarrhea Last Admin: 04/20/17 11:47 Dose: 2 mg Methimazole (Tapazole) 5 mg PO DAILY [facility] Last Admin: 04/21/17 10:11 Dose: 5 mg Methylprednisolone (Solu-Medrol) 40 mg IV DAILY [facility] Last Admin: 04/21/17 10:11 Dose: 40 mg Metoprolol Tartrate (Lopressor) 25 mg PO BID [facility] Last Admin: 04/21/17 18:43 Dose: 25 mg Naproxen (Anaprox) 275 mg PO BID [facility] Last Admin: 04/21/17 18:46 Dose: Not Given Nitroglycerin (Nitrostat Sl Tab) 0.4 mg SL Q5M PRN PRN Reason: Chest Pain Last Admin: 04/21/17 16:09 Dose: 0.4 mg Pantoprazole Sodium (Protonix Ec Tab) 40 mg PO 0600 [facility] Last Admin: 04/21/17 05:37 Dose: 40 mg Promethazine HCl (Phenergan Syrup) 6.25 mg PO TID PRN PRN Reason: Cough Last Admin: 04/19/17 14:29 Dose: 6.25 mg Saccharomyces Boulardii (Florastor) 250 mg PO DAILY [facility] Last Admin: 04/21/17 10:10 Dose: 250 mg Zolpidem Tartrate (Ambien) 5 mg PO HS PRN PRN Reason: Insomnia Last Admin: 04/21/17 22:37 Dose: 5 mg - Labs Labs: 04/20/17 07:01 04/20/17 07:01 - Constitutional Appears: Non-toxic, No Acute Distress, Chronically Ill - Head Exam Head Exam: NORMAL INSPECTION, NORMOCEPHALIC - Eye Exam Pupil Exam: NORMAL ACCOMODATION - ENT Exam ENT Exam: Mucous Membranes Moist, Normal Exam - Respiratory Exam Respiratory Exam: Prolonged Expiratory Phase, Rhonchi, NORMAL BREATHING PATTERN - Cardiovascular Exam Cardiovascular Exam: REGULAR RHYTHM, +S1, +S2 - GI/Abdominal Exam GI & Abdominal Exam: Soft, Normal Bowel Sounds - Rectal Exam Rectal Exam: NORMAL INSPECTION - Extremities Exam Extremities Exam: Normal Capillary Refill - Neurological Exam Neurological Exam: Alert, Awake, CN II-XII Intact, Normal Gait, Oriented x3 Assessment and Plan (1) Acute respiratory failure with hypercapnia Status: Resolved (2) Acute tracheobronchitis Status: Acute (3) Hypothyroidism Status: Chronic (4) HTN (hypertension) Status: Chronic (5) Chest pain Assessment & Plan: S/P RR AND TROPONINS ARE NEGATIVE Status: Acute
[2017-04-22] MEDS: Albuterol-Ipratrop 3 mg / 0.5 (3 ml) UD INH SCH ×3 (02:33→13:24)
[2017-04-22] MEDS: Cefepime 1 GM in Sodium Chloride 0.9% 100 ML IVPB SCH ×2 (05:37→14:20)
[2017-04-22] MEDS: Pantoprazole 40 mg EC Tab PO SCH (05:38)
[2017-04-22] MEDS: Lidocaine 5% Patch TD SCH (10:23)
[2017-04-22] MEDS: Saccharomyces Boulardi 250 mg Cap PO SCH (10:23)
[2017-04-22] MEDS: guaiFENesin 600 mg ER Tab PO SCH ×2 (10:23→18:55)
[2017-04-22] MEDS: Naproxen 275 mg Tab PO SCH ×2 (10:24→18:55)
[2017-04-22] MEDS: MethylPREDNISolone 40 mg Vial IV SCH (10:26)
[2017-04-22] MEDS: methIMAzole 5 MG TAB PO SCH (11:24)
--- NOTE | 2017-04-22 13:40 | CP.PCM.PN ---
Subjective - Date & Time of Evaluation Date of Evaluation: 04/22/17 Time of Evaluation: 09:00 - Subjective Subjective: Patient seen and examined. Lying comfortably in no acute distress but complaining of slight chest discomfort Patient seen by cardiology and had a rapid response yesterday Still having cough which is mostly dry Denies fever or chills Objective - Vital Signs/Intake and Output Vital Signs (last 24 hours): Temp Pulse Resp BP Pulse Ox 98 F 89 20 98/61 L 99 04/22/17 07:47 04/22/17 10:21 04/22/17 07:47 04/22/17 10:26 04/22/17 07:47 Intake and Output: 04/22/17 04/22/17 06:59 18:59 Intake Total 450 Balance 450 - Medications Medications: Current Medications Albuterol/Ipratropium (Duoneb 3 Mg/0.5 Mg (3 Ml) Ud) 3 ml INH RQ6 [facility] Last Admin: 04/22/17 13:24 Dose: 3 ml Albuterol/Ipratropium (Duoneb 3 Mg/0.5 Mg (3 Ml) Ud) 3 ml INH RQ2 PRN PRN Reason: SOB Anastrozole (Arimidex 1 Mg Tab) 1 mg PO DAILY [facility] Last Admin: 04/22/17 11:27 Dose: 1 mg Gabapentin (Neurontin) 600 mg PO TID [facility] Last Admin: 04/22/17 10:23 Dose: 600 mg Guaifenesin (Mucinex La) 600 mg PO BID [facility] Last Admin: 04/22/17 10:23 Dose: 600 mg Cefepime HCl 1 gm/ Sodium (Chloride) 100 mls @ 100 mls/hr IVPB Q8H [facility] Last Admin: 04/22/17 05:37 Dose: 100 mls/hr Lidocaine (Lidoderm) 1 ea TD DAILY [facility] Last Admin: 04/22/17 10:23 Dose: 1 ea Loperamide HCl (Imodium) 2 mg PO Q4H PRN PRN Reason: Diarrhea Last Admin: 04/20/17 11:47 Dose: 2 mg Methimazole (Tapazole) 5 mg PO DAILY [facility] Last Admin: 04/22/17 11:24 Dose: 5 mg Methylprednisolone (Solu-Medrol) 40 mg IV DAILY [facility] Last Admin: 04/22/17 10:26 Dose: 40 mg Metoprolol Tartrate (Lopressor) 25 mg PO BID [facility] Last Admin: 04/22/17 10:26 Dose: Not Given Naproxen (Anaprox) 275 mg PO BID [facility] Last Admin: 04/22/17 10:24 Dose: 275 mg Nitroglycerin (Nitrostat Sl Tab) 0.4 mg SL Q5M PRN PRN Reason: Chest Pain Last Admin: 04/22/17 11:25 Dose: 0.4 mg Pantoprazole Sodium (Protonix Ec Tab) 40 mg PO 0600 [facility] Last Admin: 04/22/17 05:38 Dose: 40 mg Promethazine HCl (Phenergan Syrup) 6.25 mg PO TID PRN PRN Reason: Cough Last Admin: 04/19/17 14:29 Dose: 6.25 mg Saccharomyces Boulardii (Florastor) 250 mg PO DAILY [facility] Last Admin: 04/22/17 10:23 Dose: 250 mg Zolpidem Tartrate (Ambien) 5 mg PO HS PRN PRN Reason: Insomnia Last Admin: 04/21/17 22:37 Dose: 5 mg - Labs Labs: 04/20/17 07:01 04/20/17 07:01 - Head Exam Head Exam: ATRAUMATIC, NORMOCEPHALIC - Eye Exam Eye Exam: Normal appearance - ENT Exam ENT Exam: Mucous Membranes Moist - Neck Exam Neck Exam: Normal Inspection - Respiratory Exam Respiratory Exam: Decreased Breath Sounds - Cardiovascular Exam Cardiovascular Exam: REGULAR RHYTHM Assessment and Plan (1) Acute bronchitis with chronic obstructive pulmonary disease (COPD) Assessment & Plan: Continue to taper steroids Continue nebulizer treatment Cardiology workup Status: Acute (2) Acute respiratory failure with hypoxia Status: Acute
[2017-04-22 14:00] LABS: DRAW SITE VBG; VENOUS BLOOD GAS PCO2 57 mmHg (40-60); VENOUS BLOOD PH 7.37 (7.32-7.43)
[2017-04-22 15:37] VITALS: TEMP 98.1
--- NOTE | 2017-04-22 16:57 | CP.PCM.PN ---
Subjective - Date & Time of Evaluation Date of Evaluation: 04/22/17 Time of Evaluation: 10:25 - Subjective Subjective: Pt seen and examined today , sob and chest tightness improved,c/o nonproductive cough No overnight events reported by RN Objective - Vital Signs/Intake and Output Vital Signs (last 24 hours): Temp Pulse Resp BP Pulse Ox 98.1 F 92 H 20 115/70 95 04/22/17 15:35 04/22/17 15:35 04/22/17 15:35 04/22/17 15:35 04/22/17 15:35 Intake and Output: 04/22/17 04/22/17 06:59 18:59 Intake Total 450 Balance 450 - Medications Medications: Current Medications Albuterol/Ipratropium (Duoneb 3 Mg/0.5 Mg (3 Ml) Ud) 3 ml INH RQ6 [facility] Last Admin: 04/22/17 13:24 Dose: 3 ml Albuterol/Ipratropium (Duoneb 3 Mg/0.5 Mg (3 Ml) Ud) 3 ml INH RQ2 PRN PRN Reason: SOB Anastrozole (Arimidex 1 Mg Tab) 1 mg PO DAILY [facility] Last Admin: 04/22/17 11:27 Dose: 1 mg Gabapentin (Neurontin) 600 mg PO TID [facility] Last Admin: 04/22/17 14:25 Dose: 600 mg Guaifenesin (Mucinex La) 600 mg PO BID [facility] Last Admin: 04/22/17 10:23 Dose: 600 mg Cefepime HCl 1 gm/ Sodium (Chloride) 100 mls @ 100 mls/hr IVPB Q8H [facility] Last Admin: 04/22/17 14:20 Dose: 100 mls/hr Lidocaine (Lidoderm) 1 ea TD DAILY [facility] Last Admin: 04/22/17 10:23 Dose: 1 ea Loperamide HCl (Imodium) 2 mg PO Q4H PRN PRN Reason: Diarrhea Last Admin: 04/20/17 11:47 Dose: 2 mg Methimazole (Tapazole) 5 mg PO DAILY [facility] Last Admin: 04/22/17 11:24 Dose: 5 mg Methylprednisolone (Solu-Medrol) 40 mg IV DAILY [facility] Last Admin: 04/22/17 10:26 Dose: 40 mg Metoprolol Tartrate (Lopressor) 25 mg PO BID [facility] Last Admin: 04/22/17 10:26 Dose: Not Given Naproxen (Anaprox) 275 mg PO BID [facility] Last Admin: 04/22/17 10:24 Dose: 275 mg Nitroglycerin (Nitrostat Sl Tab) 0.4 mg SL Q5M PRN PRN Reason: Chest Pain Last Admin: 04/22/17 11:25 Dose: 0.4 mg Pantoprazole Sodium (Protonix Ec Tab) 40 mg PO 0600 [facility] Last Admin: 04/22/17 05:38 Dose: 40 mg Promethazine HCl (Phenergan Syrup) 6.25 mg PO TID PRN PRN Reason: Cough Last Admin: 04/19/17 14:29 Dose: 6.25 mg Saccharomyces Boulardii (Florastor) 250 mg PO DAILY [facility] Last Admin: 04/22/17 10:23 Dose: 250 mg Zolpidem Tartrate (Ambien) 5 mg PO HS PRN PRN Reason: Insomnia Last Admin: 04/21/17 22:37 Dose: 5 mg - Labs Labs: 04/20/17 07:01 04/20/17 07:01 - Constitutional Appears: Well, No Acute Distress - ENT Exam ENT Exam: Mucous Membranes Moist - Respiratory Exam Respiratory Exam: Decreased Breath Sounds, Rhonchi, NORMAL BREATHING PATTERN - Cardiovascular Exam Cardiovascular Exam: REGULAR RHYTHM, +S1, +S2 Assessment and Plan - Assessment and Plan (Free Text) Assessment: A/P 66 yr old female admitted for exc. COPD and resp. failure , Pt clinically improved and sat. well on oxygen via nasal canula Patient seen by Dr. Chang, chest pain is not cardiac and cleared for discharge home today from cardiology stand point seen by Dr. Hammond today, cleared for discharge home today and f/u with PMD IN 3-5 day Patient have oxygen at home and in working status( as per MOLLY Sorto , she spoke to daughter and confirmed oxygen ) Discharge plan discussed with patient , who understands and agrees with plan T[place]anien instructed to returns to ED if symptoms returns
--- NOTE | 2017-04-22 17:25 | CP.PCM.PN ---
Subjective - Date & Time of Evaluation Date of Evaluation: 04/22/17 Time of Evaluation: 16:00 - Subjective Subjective: patient has no further chest pain. Objective - Vital Signs/Intake and Output Vital Signs (last 24 hours): Temp Pulse Resp BP Pulse Ox 98.1 F 92 H 20 115/70 95 04/22/17 15:35 04/22/17 15:35 04/22/17 15:35 04/22/17 15:35 04/22/17 15:35 Intake and Output: 04/22/17 04/22/17 06:59 18:59 Intake Total 450 Balance 450 - Medications Medications: Current Medications Albuterol/Ipratropium (Duoneb 3 Mg/0.5 Mg (3 Ml) Ud) 3 ml INH RQ6 [facility] Last Admin: 04/22/17 13:24 Dose: 3 ml Albuterol/Ipratropium (Duoneb 3 Mg/0.5 Mg (3 Ml) Ud) 3 ml INH RQ2 PRN PRN Reason: SOB Anastrozole (Arimidex 1 Mg Tab) 1 mg PO DAILY [facility] Last Admin: 04/22/17 11:27 Dose: 1 mg Gabapentin (Neurontin) 600 mg PO TID [facility] Last Admin: 04/22/17 14:25 Dose: 600 mg Guaifenesin (Mucinex La) 600 mg PO BID [facility] Last Admin: 04/22/17 10:23 Dose: 600 mg Cefepime HCl 1 gm/ Sodium (Chloride) 100 mls @ 100 mls/hr IVPB Q8H [facility] Last Admin: 04/22/17 14:20 Dose: 100 mls/hr Lidocaine (Lidoderm) 1 ea TD DAILY [facility] Last Admin: 04/22/17 10:23 Dose: 1 ea Loperamide HCl (Imodium) 2 mg PO Q4H PRN PRN Reason: Diarrhea Last Admin: 04/20/17 11:47 Dose: 2 mg Methimazole (Tapazole) 5 mg PO DAILY [facility] Last Admin: 04/22/17 11:24 Dose: 5 mg Methylprednisolone (Solu-Medrol) 40 mg IV DAILY [facility] Last Admin: 04/22/17 10:26 Dose: 40 mg Metoprolol Tartrate (Lopressor) 25 mg PO BID [facility] Last Admin: 04/22/17 10:26 Dose: Not Given Naproxen (Anaprox) 275 mg PO BID [facility] Last Admin: 04/22/17 10:24 Dose: 275 mg Nitroglycerin (Nitrostat Sl Tab) 0.4 mg SL Q5M PRN PRN Reason: Chest Pain Last Admin: 04/22/17 11:25 Dose: 0.4 mg Pantoprazole Sodium (Protonix Ec Tab) 40 mg PO 0600 [facility] Last Admin: 04/22/17 05:38 Dose: 40 mg Promethazine HCl (Phenergan Syrup) 6.25 mg PO TID PRN PRN Reason: Cough Last Admin: 04/19/17 14:29 Dose: 6.25 mg Saccharomyces Boulardii (Florastor) 250 mg PO DAILY [facility] Last Admin: 04/22/17 10:23 Dose: 250 mg Zolpidem Tartrate (Ambien) 5 mg PO HS PRN PRN Reason: Insomnia Last Admin: 04/21/17 22:37 Dose: 5 mg - Labs Labs: 04/20/17 07:01 04/20/17 07:01 - Constitutional Appears: Non-toxic - Head Exam Head Exam: NORMAL INSPECTION - Eye Exam Eye Exam: Normal appearance - ENT Exam ENT Exam: Mucous Membranes Moist - Neck Exam Neck Exam: Full ROM - Respiratory Exam Respiratory Exam: Decreased Breath Sounds - Cardiovascular Exam Cardiovascular Exam: REGULAR RHYTHM - GI/Abdominal Exam GI & Abdominal Exam: Normal Bowel Sounds - Rectal Exam Rectal Exam: Deferred - Extremities Exam Extremities Exam: Pedal Edema - Back Exam Back Exam: NORMAL INSPECTION - Neurological Exam Neurological Exam: Alert - Psychiatric Exam Psychiatric exam: Normal Affect - Skin Skin Exam: Normal Color Assessment and Plan (1) Chest pain Assessment & Plan: likely noncardiac. stable for discharge from cardiac standpoint. Status: Acute (2) COPD with exacerbation Assessment & Plan: as per pulmonary Status: Acute (3) Chronic CHF (congestive heart failure) Assessment & Plan: patient has diastolic dysfunction. medical therapy Status: Acute (4) HTN (hypertension) Assessment & Plan: controlled Status: Chronic
[2017-04-22 18:55] VITALS: BP 115/74; PULSE 102
[2017-04-22 20:31] VITALS: RESP 22; O2SAT 93
--- NOTE | 2017-04-22 22:06 | CP.PCM.DIS ---
Provider - Provider Date of Admission: 04/13/17 11:47 Attending physician: Dillon Malloy MD Time Spent in preparation of Discharge (in minutes): 30 Diagnosis - Discharge Diagnosis (1) Acute tracheobronchitis Status: Acute (2) Hypothyroidism Status: Chronic (3) HTN (hypertension) Status: Chronic Priority: Medium Hospital Course - Lab Results Lab Results: Micro Results 04/13/17 17:00 Blood Blood Culture - Final NO GROWTH AFTER 5 DAYS 04/13/17 17:00 Blood Gram Stain - Final 04/13/17 17:00 Blood Blood Culture - Final NO GROWTH AFTER 5 DAYS 04/13/17 17:00 Blood Gram Stain - Final TEST NOT PERFORMED 04/15/17 11:14 Stool Stool Culture - Final NO SALMONELLA, SHIGELLA OR CAMPYLOBACTER ISOLATED. 04/13/17 Unknown Naris MRSA Culture (Admit) - Final MRSA NOT DETECTED Most Recent Lab Values WBC 10.7 K/uL (4.8-10.8) 04/20/17 07:01 RBC 3.92 Mil/uL (3.80-5.20) 04/20/17 07:01 Hgb 11.2 g/dL (11.0-16.0) 04/20/17 07:01 Hct 34.3 % (34.0-47.0) 04/20/17 07:01 MCV 87.5 fL (81.0-99.0) 04/20/17 07:01 MCH 28.7 pg (27.0-31.0) 04/20/17 07:01 MCHC 32.8 g/dL (33.0-37.0) L 04/20/17 07:01 RDW 17.2 % (11.5-14.5) H 04/20/17 07:01 Plt Count 294 K/uL (130-400) 04/20/17 07:01 MPV 7.4 fL (7.2-11.7) 04/20/17 07:01 Neut % (Auto) 93.3 % (50.0-75.0) H 04/18/17 06:15 Lymph % (Auto) 3.2 % (20.0-40.0) L 04/18/17 06:15 Guthrie % (Auto) 3.4 % (0.0-10.0) 04/18/17 06:15 Eos % (Auto) 0.0 % (0.0-4.0) 04/18/17 06:15 Baso % (Auto) 0.1 % (0.0-2.0) 04/18/17 06:15 Neut # 10.4 K/uL (1.8-7.0) H 04/18/17 06:15 Lymph # 0.4 K/uL (1.0-4.3) L 04/18/17 06:15 Guthrie # 0.4 K/uL (0.0-0.8) 04/18/17 06:15 Eos # 0.0 K/uL (0.0-0.7) 04/18/17 06:15 Baso # 0.0 K/uL (0.0-0.2) 04/18/17 06:15 Neutrophils % (Manual) 95 % (50-75) H 04/18/17 06:15 Lymphocytes % (Manual) 1 % (20-40) L 04/18/17 06:15 Reactive Lymphs % 1 % (0-0) H 04/14/17 06:16 Monocytes % (Manual) 4 % (0-10) 04/18/17 06:15 Platelet Estimate Normal (NORMAL) 04/18/17 06:15 Hypochromasia (manual) Slight 04/16/17 06:27 Poikilocytosis (manual Slight 04/15/17 06:24 Anisocytosis (manual) Slight 04/18/17 06:15 Puncture Site Vbg 04/22/17 13:51 pCO2 46 mm/Hg (35-45) H 04/21/17 15:40 pO2 38 mm/Hg (30-55) 04/22/17 13:51 HCO3 32.3 mmol/L (21-28) H 04/21/17 15:40 ABG pH 7.48 (7.35-7.45) H 04/21/17 15:40 ABG Total CO2 35.7 mmol/L (22-28) H 04/21/17 15:40 ABG O2 Saturation 96.8 % (95-98) 04/21/17 15:40 ABG Base Excess 9.6 mmol/L (-2.0-3.0) H 04/21/17 15:40 ABG Hemoglobin 11.4 g/dL (11.7-17.4) L 04/21/17 15:40 ABG Carboxyhemoglobin 2.7 % (0.5-1.5) H 04/21/17 15:40 POC ABG HHb (Measured) 3.1 % (0.0-5.0) 04/21/17 15:40 ABG Methemoglobin 1.2 % (0.0-3.0) 04/21/17 15:40 Markel Test Na 04/22/17 13:51 ABG Potassium 3.3 mmol/L (3.6-5.2) L 04/13/17 10:56 VBG pH 7.37 (7.32-7.43) 04/22/17 13:51 VBG pCO2 57 mmHg (40-60) 04/22/17 13:51 VBG HCO3 28.9 mmol/L 04/22/17 13:51 VBG O2 Sat (Calc) 76.1 % (40-65) H 04/22/17 13:51 VBG Base Excess 6.0 mmol/L (0.0-2.0) H 04/22/17 13:51 A-a O2 Difference 87.0 mm/Hg 04/21/17 15:40 Respiratory Index 1.6 04/21/17 15:40 Hgb O2 Saturation 92.9 % (95.0-98.0) L 04/21/17 15:40 Sodium 144.0 mmol/l (132-148) 04/13/17 10:56 Chloride 118.0 mmol/L (98-107) H 04/13/17 10:56 Glucose 178 mg/dl (65-105) H 04/13/17 10:56 Lactate 1.5 mmol/L (0.7-2.1) 04/13/17 10:56 Liter Flow 2.0 04/21/17 15:40 Vent Mode Prvc 04/14/17 05:25 Mechanical Rate 20 04/14/17 05:25 FiO2 28.0 % 04/21/17 15:40 Tidal Volume 500 04/14/17 05:25 PEEP 5 04/14/17 05:25 Crit Value Called To Dr yoo 04/13/17 10:56 Crit Value Called By Frank fontaine branch services manager 04/13/17 10:56 Crit Value Read Back Y 04/13/17 10:56 Blood Gas Notified Time 1059 04/13/17 10:56 Sodium 137 mmol/L (132-148) 04/20/17 07:01 Potassium 4.2 mmol/L (3.6-5.2) 04/20/17 07:01 Chloride 101 mmol/L (98-107) 04/20/17 07:01 Carbon Dioxide 29 mmol/L (22-30) 04/20/17 07:01 Anion Gap 10 (10-20) 04/20/17 07:01 BUN 29 mg/dL (7-17) H 04/20/17 07:01 Creatinine 0.7 MG/DL (0.7-1.2) 04/20/17 07:01 Est GFR ( Amer) > 60 04/20/17 07:01 Est GFR (Non-Af Amer) > 60 04/20/17 07:01 Random Glucose 75 mg/dL (65-105) 04/20/17 07:01 Calcium 8.5 mg/dl (8.6-10.4) L 04/20/17 07:01 Phosphorus 3.8 mg/dL (2.5-4.5) 04/16/17 06:27 Magnesium 1.7 mg/dL (1.6-2.3) 04/16/17 06:27 Total Bilirubin 0.3 mg/dL (0.2-1.3) 04/16/17 06:27 AST 20 U/L (14-36) 04/16/17 06:27 ALT 33 U/L (9-52) 04/16/17 06:27 Alkaline Phosphatase 73 U/L (38-126) 04/16/17 06:27 Total Creatine Kinase < 20 U/L (30-135) L 04/22/17 03:22 CK-MB (Mass) 2.08 ng/mL (0.0-3.38) 04/22/17 03:22 Troponin I 0.0140 ng/mL (0.00-0.120) 04/13/17 11:17 Troponin I, Quant < 0.0120 ng/mL (0.00-0.120) 04/22/17 03:22 NT-Pro-B Natriuret Pep 57586 pg/mL (0-900) H 04/13/17 11:17 Total Protein 5.4 g/dL (6.3-8.3) L 04/16/17 06:27 Albumin 2.7 g/dL (3.5-5.0) L 04/16/17 06:27 Globulin 2.6 gm/dL (2.2-3.9) 04/16/17 06:27 Albumin/Globulin Ratio 1.0 (1.0-2.1) 04/16/17 06:27 Arterial Blood Potassium 3.3 mmol/L (3.6-5.2) L 04/13/17 10:56 Urine Color Yellow (YELLOW) 04/13/17 12:15 Urine Clarity Clear (Clear) 04/13/17 12:15 Urine pH 6.0 (5.0-8.0) 04/13/17 12:15 Ur Specific Gaston 1.013 (1.003-1.030) 04/13/17 12:15 Urine Protein 1+ mg/dL (NEGATIVE) H 04/13/17 12:15 Urine Glucose (UA) 2+ mg/dL (Normal) H 04/13/17 12:15 Urine Ketones Negative mg/dL (NEGATIVE) 04/13/17 12:15 Urine Blood 1+ (NEGATIVE) H 04/13/17 12:15 Urine Nitrate Negative (NEGATIVE) 04/13/17 12:15 Urine Bilirubin Negative (NEGATIVE) 04/13/17 12:15 Urine Urobilinogen Normal mg/dL (0.2-1.0) 04/13/17 12:15 Ur Leukocyte Esterase Trace Mary/uL (Negative) 04/13/17 12:15 Urine WBC (Auto) 8 /hpf (0-5) H 04/13/17 12:15 Urine RBC (Auto) 2 /hpf (0-3) 04/13/17 12:15 Urine Bacteria Rare (<OCC) 04/13/17 12:15 Hyaline Casts 0-2 /lpf (0-2) 04/13/17 12:15 C. difficile Ag & Toxin Negative (NEGATIVE) 04/15/17 11:14 - Hospital Course Hospital Course: 66 y/o wf with copd, htn and she was admitted with short of breath cough and she had acute resp, failure and she was given solumedrol, nebulizer, expectorant weaned off mv and now she is for discharge Discharge Exam - Head Exam Head Exam: ATRAUMATIC, NORMAL INSPECTION, NORMOCEPHALIC - Eye Exam Eye Exam: EOMI, Normal appearance, PERRL Pupil Exam: NORMAL ACCOMODATION - ENT Exam ENT Exam: Mucous Membranes Moist, Normal Exam, Normal Oropharynx, TM's Normal Bilaterally - Neck Exam Neck exam: Normal Inspection - Respiratory Exam Respiratory Exam: Decreased Breath Sounds, Rhonchi, Wheezes - Cardiovascular Exam Cardiovascular Exam: REGULAR RHYTHM, +S1, +S2 - GI/Abdominal Exam GI & Abdominal Exam: Normal Bowel Sounds - Rectal Exam Rectal Exam: NORMAL INSPECTION - Back Exam Back exam: NORMAL INSPECTION - Neurological Exam Neurological exam: Alert, CN II-XII Intact, Normal Gait, Oriented x3, Reflexes Normal - Psychiatric Exam Psychiatric exam: Normal Mood - Skin Skin Exam: Intact Discharge Plan - Discharge Medications Prescriptions: Albuterol/Ipratropium [Duoneb 3 mg/0.5 mg (3 ml) UD] 3 ml INH Q6 #50 guaiFENesin [Mucinex LA] 600 mg PO BID #30 tab Gabapentin [Neurontin] 600 mg PO TID #60 tab predniSONE [Prednisone] 30 mg PO DAILY #19 tab - Follow Up Plan Condition: STABLE Disposition: HOME/ ROUTINE Instructions: Prednisone (By mouth), Gabapentin (By mouth), Ipratropium/ Albuterol (By breathing), Heart Failure (DC), Chest Pain (DC), Heart Healthy Diet (DC), Acute Bronchitis (GEN), COPD (Chronic Obstructive Pulmonary Disease) (DC) Additional Instructions: Please f/u with PMD in 3- 5 days continue medication as per Med. Rec. Referrals: Dillon Malloy MD [Staff Provider] -
--- NOTE | 2017-05-15 18:51 | CARD ---
APPROVED REPORT EKG Measurement Heart [id number] <Conclusion> Sinus rhythm with short W[place] consider WPW syndrome Nonspecific T wave abnormality Abnormal ECG
== END 2017-04-22 19:20 | disposition home or self-care (01) | DRG 871 ==
LOC: C.ER 09:29 → C.9I 11:47 → C.3T 04-16 20:48 → C.5T 04-21 15:28
PROVIDERS: ADMIT Internal Medicine; ATTEND Internal Medicine
PROC: 5A1945Z Respiratory Ventilation, 24-96 Consecutive Hours (ICD-10-PCS; principal; 2017-04-13)
DX: A41.9 Sepsis, unspecified organism (principal); J96.02 Acute respiratory failure with hypercapnia; J18.9 Pneumonia, unspecified organism; I11.0 Hypertensive heart disease with heart failure; J44.0 Chronic obstructive pulmonary disease with (acute) lower respiratory infection; I50.42 Chronic combined systolic (congestive) and diastolic (congestive) heart failure; I27.2 Other secondary pulmonary hypertension; J44.1 Chronic obstructive pulmonary disease with (acute) exacerbation; R65.20 Severe sepsis without septic shock; J20.9 Acute bronchitis, unspecified; E03.9 Hypothyroidism, unspecified; E05.90 Thyrotoxicosis, unspecified without thyrotoxic crisis or storm; D63.8 Anemia in other chronic diseases classified elsewhere; Y95 Nosocomial condition; E21.3 Hyperparathyroidism, unspecified; F41.9 Anxiety disorder, unspecified; G62.9 Polyneuropathy, unspecified; M81.0 Age-related osteoporosis without current pathological fracture; Z85.3 Personal history of malignant neoplasm of breast; Z87.891 Personal history of nicotine dependence; Z92.21 Personal history of antineoplastic chemotherapy; Z98.1 Arthrodesis status